=== PATIENT | male | born 1980 | race Caucasian/White ===

== ENCOUNTER 2019-08-29 15:16 | Inpatient (IN) | payer MEDICAID, OTHER ==
[2019-08-29 16:11] LABS: Amphetamine Screen,Urine Not Detected (NotDetected); Barbiturate Screen,Urine Not Detected (NotDetected); Benzodiazepines Screen,Urine Detected (NotDetected); Cocaine Screen,Urine Not Detected (NotDetected); Methadone Screen, Urine Not Detected (NotDetected); Opiate Screen,Urine Not Detected (NotDetected); Oxycodone Screen, Urine Not Detected (NotDetected); Phencyclidine Screen,Urine Not Detected (NotDetected); Tricyclic Antidepressant,Urine Not Detected (NotDetected); Urn Cannabinoid Scrn Not Detected (NotDetected)
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
[2019-08-29] MEDS ORDERED: ACETAMINOPHEN TAB 325 MG TAB PO PRN (17:42)
[2019-08-29] MEDS ORDERED: MAG HYDROX/AL HYDROX/SIMETH 30 ML CUP PO PRN (17:42)
[2019-08-29] MEDS ORDERED: MAGNESIUM HYDROXIDE 2,400 MG/10 ML CUP PO PRN (17:42)
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
[2019-08-30 07:06] LABS: Basophils # (A) 0.1 k/uL (0-0.2); Basophils % (A) 1 %; Eosinophils # (A) 0.4 k/uL (0-0.7); Eosinophils % (A) 6 %; HCT 46.1 % (39.0-53.0); HGB 15.4 gm/dL (13.0-17.5); Lymphocytes # (A) 2.1 k/uL (1.0-4.8); Lymphocytes % (A) 27 %; MCH 31.6 pg (25.0-35.0); MCHC 33.3 g/dL (31.0-37.0); MCV 94.8 fL (80.0-100.0); Mean Platelet Volume 7.3; Monocytes # (A) 0.4 k/uL (0-1.0); Monocytes % (A) 6 %; Neutrophils # (A) 4.7 k/uL (1.3-7.7); Neutrophils % (A) 60 %; Platelet Count 246 k/uL (150-450); RBC 4.87 m/uL (4.30-5.90); RDW 12.1 % (11.5-15.5); WBC 7.8 k/uL (3.8-10.6)
[2019-08-30 07:14] LABS: ALT 22 U/L (4-49); AST 29 U/L (17-59); African American GFR (CKD) >90 (>60 ml/min/1.73 sqM); Albumin 4.5 g/dL (3.5-5.0); Alkaline Phosphatase 52 U/L (38-126); Anion Gap 8 mmol/L; Blood Urea Nitrogen 18 mg/dL (9-20); Calcium 9.9 mg/dL (8.4-10.2); Carbon Dioxide 25 mmol/L (22-30); Chloride 107 mmol/L (98-107); Cholesterol 197 mg/dL (<200); Glucose 91 mg/dL (74-99); HDL Cholesterol 35 mg/dL (40-60); LDL Cholesterol,Calculated 140 mg/dL (0-99); Non-African American GFR(CKD) >90 (>60 ml/min/1.73 sqM); Potassium 4.6 mmol/L (3.5-5.1); Sodium 140 mmol/L (137-145); Total Bilirubin 1.1 mg/dL (0.2-1.3); Total Protein 7.6 g/dL (6.3-8.2); Triglycerides 109 mg/dL (<150)
[2019-08-30] MEDS: amLODIPine 10 MG TAB PO SCH (08:32)
[2019-08-30] MEDS: FINASTERIDE 5 MG TAB PO SCH (08:32)
[2019-08-30] MEDS: LORazepam 1 MG TAB PO PRN ×3 (08:36→22:50)
[2019-08-30] MEDS ORDERED: LITHIUM CARBONATE 300 MG CAP PO SCH (09:00)
[2019-08-30] MEDS: VALSARTAN 40 MG TAB PO SCH (09:21)
[2019-08-30 09:48] LABS: Lithium <0.2 mmol/L
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
[2019-08-30] MEDS: NICOTINE POLACRILEX 2 MG GUM BUCCAL PRN ×2 (12:03→18:09)
[2019-08-30 14:45] LABS: Hemoglobin A1C 4.9 % (4.0-6.0)
[2019-08-30] MEDS: traZODone HCL 50 MG TAB PO SCH (20:25)
[2019-08-30] MEDS: PALIPERIDONE 3 MG TAB.ER.24 PO SCH (20:25)
[2019-08-30] MEDS ORDERED: LORazepam 0.5 MG TAB PO SCH (21:00)
[2019-08-31] MEDS: amLODIPine 10 MG TAB PO SCH (08:17)
[2019-08-31] MEDS: VALSARTAN 40 MG TAB PO SCH (08:18)
[2019-08-31] MEDS: FINASTERIDE 5 MG TAB PO SCH (08:18)
[2019-08-31] MEDS: LORazepam 1 MG TAB PO PRN (08:19)
[2019-08-31] MEDS: NICOTINE POLACRILEX 2 MG GUM BUCCAL PRN ×2 (08:19→14:39)
--- NOTE | 2019-08-31 09:54 | P.PN ---
Progress Note - Text Progress Note Date: 08/31/19 Interval History: Patient was seen wandering the hallways and was directable and agreeable to sp gregory with continuity writer in the office. Patient appeared to have improved hygiene and grooming today. She appeared to have a improved affect and states that his anxiety and mood have been gradually improving. He states that he feels less irritable today on the current medication. Or Assistant and patient discussed more about the side effects of the medications as patient had more questions and we talked about the possibility of gynecomastia, sedation, weight gain and also orthostatic hypotension and at this point patient verbally agreed and understood and wanted to continue on this medication. He states that then noises and sounds are becoming less "loud" for him and he states that he usually takes him about 3-4 days for that to improve. Patient appeared to be more future oriented and we spoke more about the long-acting injection. He states that he slept well throughout the night and has a fair appetite. At this time patient denies any suicidal or homical ideations, intent or plan. Patient denies any visual hallucinations and denies any paranoia or delusions. Patient has been compliant with meds. Mental Status Exam: General Appearance: Patient appears to be stated age is alert, directable, and attempts to cooperate. Patient appears to have fair hygiene and grooming. Behavior: Patient is seated without any agitated behavior. Attempts to cooperate. Speech: Patient's speech is fluent and nonpressured. Mood/Affect: Patient reports their mood is "better", affect is congruent Suicidality/Homicidality: Patient denies having any homicidal ideation intent or plan. Denies any suicidal ideations intent or plan Perceptions: Patient denies any visual hallucinations and admits to auditory hallucinations of noises and voices at times which are mildly improving. Though content/process: There is no evidence of any delusional thought content and thought process is linear and goal-directed. Memory and concentration: AOX3, grossly intact for the purposes of this session Judgment and insight: poor, improving mildly. Assessment Schizoaffective disorder, depressive type History of traumatic brain injury Plan: -Patient continues to meet criteria for inpatient psychiatric admission for symptom stabilization and safety. Patient has signed adult voluntary form and medication consent and was placed in patient's chart. -Medications: Continue with Invega 3 mg nightly for psychosis/mood s tabilization. Continue with trazodone 25 mg nightly for insomnia/mood. We will restart patient's home dose of Ativan 0.5 mg 3 times a day for anxiety. -When necessary Ativan and Geodon for agitation/aggression. -NRT - Nicorette gum -SW on board for discharge planning. Encouraged the patient to participate in milieu. Will need to transition patient onto Invega Sustenna long-acting injection prior to discharge the patient will be going back to his mother's house upon discharge.
[2019-08-31] MEDS: LORazepam 0.5 MG TAB PO SCH ×2 (15:14→20:55)
[2019-08-31] MEDS: PALIPERIDONE 3 MG TAB.ER.24 PO SCH (20:54)
[2019-08-31] MEDS: traZODone HCL 50 MG TAB PO SCH (20:54)
[2019-09-01] MEDS: amLODIPine 10 MG TAB PO SCH (08:26)
[2019-09-01] MEDS: LORazepam 0.5 MG TAB PO SCH ×3 (08:26→21:12)
[2019-09-01] MEDS: VALSARTAN 40 MG TAB PO SCH (08:27)
[2019-09-01] MEDS: FINASTERIDE 5 MG TAB PO SCH (08:28)
[2019-09-01] MEDS: NICOTINE POLACRILEX 2 MG GUM BUCCAL PRN ×3 (08:29→20:41)
--- NOTE | 2019-09-01 09:57 | P.PN ---
Progress Note - Text Progress Note Date: 09/01/19 Interval History: Patient was seen taking part in group this morning and was directable and agre eable to speak with group underwriter in the office. Patient appeared to have improved hygiene and grooming today however did claim that he feels more anxious today. He claims that he was thinking a lot about his father and had fleeting thoughts of self-harm/suicide yesterday however was able to "break out of it". He asked group underwriter if he could be started on an antidepressant today to help with his mood. Preschool Teacher'S Assistant spoke about the different antidepressant options and the side effects. He states that he feels less irritable today on the current medication and claims that the voices and noises that he was hearing have been gradually improving. He spoke about his thoughts on wanting to get a job after he is discharged and states that "what am I going to do?". He states that he slept well throughout the night and has a fair appetite. At this time patient denies any suicidal or homical ideations, intent or plan. Patient denies any visual hallucinations and denies any paranoia or delusions. Patient has been compliant with meds. Mental Status Exam: General Appearance: Patient appears to be stated age is alert, directable, and attempts to cooperate. Patient appears to have fair hygiene and grooming. Behavior: Patient is seated without any agitated behavior. Attempts to cooperate. Appears to be anxious. Speech: Patient's speech is fluent and nonpressured. Mood/Affect: Patient reports their mood is "down", affect is congruent and appears anxious. Suicidality/Homicidality: Patient denies having any homicidal ideation intent or plan. Denies any suicidal ideations intent or plan Perceptions: Patient denies any visual hallucinations and admits to auditory hallucinations of noises and voices at times which are mildly improving. Though content/process: There is no evidence of any delusional thought content and thought process is linear and goal-directed. Memory and concentration: AOX3, grossly intact for the purposes of this session Judgment and insight: poor, improving mildly. Assessment Schizoaffective disorder, depressive type History of traumatic brain injury Plan: -Patient continues to meet criteria for inpatient psychiatric admission for symptom stabilization and safety. Patient has signed adult voluntary form and medication consent and was placed in patient's chart. -Medications: Increased Invega 6 mg nightly for psychosis/mood stabilization. Continue with trazodone 25 mg nightly for insomnia/mood. Continue with Ativan 0.5 mg 3 times a day for anxiety. Will start patient on Zoloft 50 mg daily for mood/anxiety. -When necessary Ativan and Geodon for agitation/aggression. -NRT - Nicorette gum -SW on board for discharge planning. Encouraged the patient to participate in milieu. Will need to transition patient onto Invega Sustenna long-acting injection prior to discharge the patient will be going back to his mother's house upon discharge. Likely discharge early next week.
[2019-09-01] MEDS: SERTRALINE 50 MG TAB PO SCH (10:18)
[2019-09-01] MEDS: traZODone HCL 50 MG TAB PO SCH (20:37)
[2019-09-01] MEDS: PALIPERIDONE 6 MG TAB.ER.24 PO SCH (20:37)
[2019-09-02] MEDS: amLODIPine 10 MG TAB PO SCH (08:30)
[2019-09-02] MEDS: SERTRALINE 50 MG TAB PO SCH (08:30)
[2019-09-02] MEDS: FINASTERIDE 5 MG TAB PO SCH (08:30)
[2019-09-02] MEDS: LORazepam 0.5 MG TAB PO SCH ×3 (08:30→21:16)
[2019-09-02] MEDS: VALSARTAN 40 MG TAB PO SCH (08:31)
[2019-09-02] MEDS: NICOTINE POLACRILEX 2 MG GUM BUCCAL PRN ×2 (08:31→14:39)
--- NOTE | 2019-09-02 11:22 | P.PN ---
Progress Note - Text Progress Note Date: 09/02/19 Interval History: Patient was seen taking part in activities group this morning and was directable and agreeable to speak with newspaper writer in the office. Patient continues to be more appropriate and cooperative during interview. He continues to be talkative however was rational and logical lung with being goal oriented during conversation. He states that his mood has been gradually improving however states that he had some "depressive thoughts" yesterday and states that they are not voices talking to him but thoughts telling him that he is "worthless" and that thoughts about his father. Patient continues to remain optimistic about his medications and states that his mood is more stable and he feels more "better overall". Patient claims that he would like to remain on the same dose of medication at this time. He states that he feels less irritable today. He states that he slept well throughout the night and has a fair appetite. At this time patient denies any suicidal or homical ideations, intent or plan. Patient denies any visual hallucinations and denies any paranoia or delusions. Patient has been compliant with meds. Mental Status Exam: General Appearance: Patient appears to be stated age is alert, directable, and attempts to cooperate. Patient appears to have fair hygiene and grooming. Behavior: Patient is seated without any agitated behavior. Attempts to cooperate. Appears to be less anxious today. Speech: Patient's speech is fluent and nonpressured. Mood/Affect: Patient reports their mood is "better", affect is congruent and appears less anxious. Suicidality/Homicidality: Patient denies having any homicidal ideation intent or plan. Denies any suicidal ideations intent or plan Perceptions: Patient denies any visual hallucinations and admits to auditory hallucinations of noises and voices at times which are mildly improving. Though content/process: There is no evidence of any delusional thought content and thought process is linear and goal-directed. Memory and concentration: AOX3, grossly intact for the purposes of this session Judgment and insight: improving mildly. Assessment Schizoaffective disorder, depressive type History of traumatic brain injury Plan: -Patient continues to meet criteria for inpatient psychiatric admission for symptom stabilization and safety. Patient has signed adult voluntary form and medication consent and was placed in patient's chart. -Medications: Continue with Invega 6 mg nightly for psychosis/mood s tabilization. Continue with trazodone 25 mg nightly for insomnia/mood. Continue with Ativan 0.5 mg 3 times a day for anxiety. Will continue with Zoloft 50 mg daily for mood/anxiety. -When necessary Ativan and Geodon for agitation/aggression. -NRT - Nicorette gum -SW on board for discharge planning. Encouraged the patient to participate in milieu. Will need to transition patient onto Invega Sustenna long-acting injection prior to discharge the patient will be going back to his mother's house upon discharge. Will likely give Invega Sustenna loading dose Thursday with a plan to discharge early next week.
[2019-09-02] MEDS: PALIPERIDONE 6 MG TAB.ER.24 PO SCH (21:15)
[2019-09-02] MEDS: traZODone HCL 50 MG TAB PO SCH (21:15)
[2019-09-03] MEDS: FINASTERIDE 5 MG TAB PO SCH (08:29)
[2019-09-03] MEDS: SERTRALINE 50 MG TAB PO SCH (08:29)
[2019-09-03] MEDS: VALSARTAN 40 MG TAB PO SCH (08:29)
[2019-09-03] MEDS: NICOTINE POLACRILEX 2 MG GUM BUCCAL PRN ×3 (08:29→20:46)
[2019-09-03] MEDS: amLODIPine 10 MG TAB PO SCH (08:29)
[2019-09-03] MEDS: LORazepam 0.5 MG TAB PO SCH ×3 (08:29→21:06)
--- NOTE | 2019-09-03 09:27 | P.PN ---
Progress Note - Text Progress Note Date: 09/03/19 Interval History: Patient was seen walking the hallways and was directable and agreeable to speak with typewriter aligner in the office. Patient continues to be more appropriate and cooperative during interview. He continues to states that his mood has been gradually improving and he is feeling more optimistic. He feels that the medications are helping him at this time however did endorse some mild depression yesterday and depressive thoughts. Patient was agreeable to have his Zoloft increased today and wanted to remain on the same dose of the other medications. He states that he slept well throughout however did have a nightmare which she talked a typewriter aligner about and has a fair appetite. At this time patient denies any suicidal or homical ideations, intent or plan. Patient denies any visual hallucinations and denies any paranoia or delusions. Patient has been compliant with meds. Mental Status Exam: General Appearance: Patient appears to be stated age is alert, directable, and attempts to cooperate. Patient appears to have fair hygiene and grooming. Behavior: Patient is seated without any agitated behavior. Attempts to cooperate. Speech: Patient's speech is fluent and nonpressured. Mood/Affect: Patient reports their mood is "good", affect is congruent and appears less anxious. Suicidality/Homicidality: Patient denies having any homicidal ideation intent or plan. Denies any suicidal ideations intent or plan Perceptions: Patient denies any visual hallucinations and admits to auditory hallucinations of noises and voices at times which are mildly improving. Though content/process: There is no evidence of any delusional thought content and thought process is linear and goal-directed. Memory and concentration: AOX3, grossly intact for the purposes of this session Judgment and insight: improving mildly. Assessment Schizoaffective disorder, depressive type History of traumatic brain injury Plan: -Patient continues to meet criteria for inpatient psychiatric admission for symptom stabilization and safety. Patient has signed adult voluntary form and medication consent and was placed in patient's chart. -Medications: Continue with Invega 6 mg nightly for psychosis/mood stabilization. Continue with trazodone 25 mg nightly for insomnia/mood. Continue with Ativan 0.5 mg 3 times a day for anxiety. Increased Zoloft 100 mg daily for mood/anxiety. -When necessary Ativan and Geodon for agitation/aggression. -NRT - Nicorette gum -SW on board for discharge planning. Encouraged the patient to participate in milieu. Will need to transition patient onto Invega Sustenna long-acting injection prior to discharge the patient will be going back to his mother's house upon discharge. Will likely give Invega Sustenna loading dose tomorrow with a plan to discharge early next week.
[2019-09-03] MEDS: PALIPERIDONE 6 MG TAB.ER.24 PO SCH (21:05)
[2019-09-03] MEDS: traZODone HCL 50 MG TAB PO SCH (21:06)
[2019-09-04] MEDS: NICOTINE POLACRILEX 2 MG GUM BUCCAL PRN ×3 (04:57→16:28)
[2019-09-04] MEDS: FINASTERIDE 5 MG TAB PO SCH (08:56)
[2019-09-04] MEDS: LORazepam 0.5 MG TAB PO SCH ×3 (08:56→21:11)
[2019-09-04] MEDS: SERTRALINE 100 MG TAB PO SCH (08:56)
[2019-09-04] MEDS: amLODIPine 10 MG TAB PO SCH (08:56)
[2019-09-04] MEDS: VALSARTAN 40 MG TAB PO SCH (08:57)
[2019-09-04] MEDS: ZINC SULFATE 220 MG CAP PO SCH (08:57)
--- NOTE | 2019-09-04 09:15 | P.PN ---
Progress Note - Text Progress Note Date: 09/04/19 Interval History: Patient was seen walking the hallways before taking his medications and was di rectable and agreeable to speak with senior grant writer in the office. He continues to states that his mood has been gradually improving. He states that he feels less irritable and is also spoke to his brother who has been encouraging for him. He feels that the medications are helping him. He believes that his depressive thoughts are improving with the Zoloft. He states that he slept well throughout the night. He has been going to groups.. At this time patient denies any suicidal or homical ideations, intent or plan. Patient denies any visual hallucinations and denies any paranoia or delusions. Patient has been compliant with meds. Patient was agreeable to take the long-acting injection today. Mental Status Exam: General Appearance: Patient appears to be stated age is alert, directable, and attempts to cooperate. Patient appears to have fair hygiene and grooming. Behavior: Patient is seated without any agitated behavior. Attempts to cooperate. Speech: Patient's speech is fluent and nonpressured. Mood/Affect: Patient reports their mood is "better", affect is congruent Suicidality/Homicidality: Patient denies having any homicidal ideation intent or plan. Denies any suicidal ideations intent or plan Perceptions: Patient denies any visual hallucinations and auditory hallucinations have subsided. Though content/process: There is no evidence of any delusional thought content and thought process is linear and goal-directed. Memory and concentration: AOX3, grossly intact for the purposes of this session Judgment and insight: improving mildly. Assessment Schizoaffective disorder, depressive type History of traumatic brain injury Plan: -Patient continues to meet criteria for inpatient psychiatric admission for symptom stabilization and safety. Patient has signed adult voluntary form and medication consent and was placed in patient's chart. -Medications: Patient to receive Invega Sustenna loading dose 234 mg IM today. Decreased Invega 3 mg nightly for psychosis/mood stabilization, with plan to wean off. Continue with trazodone 25 mg nightly for insomnia/mood. Continue with Ativan 0.5 mg 3 times a day for anxiety. Continue with Zoloft 100 mg daily for mood/anxiety. -When necessary Ativan and Geodon for agitation/aggression. -NRT - Nicorette gum -SW on board for discharge planning. Encouraged the patient to participate in milieu. Will need to transition patient onto Invega Sustenna long-acting injection prior to discharge the patient will be going back to his mother's house upon discharge. Plan to discharge early this week.
[2019-09-04] MEDS: LORazepam 1 MG TAB PO PRN ×2 (12:15→18:34)
[2019-09-04] MEDS ORDERED: PALIPERIDONE IM 234 MG/1.5 ML SYG IM ONE (13:00)
[2019-09-04] MEDS: traZODone HCL 50 MG TAB PO SCH (20:44)
[2019-09-04] MEDS: PALIPERIDONE 3 MG TAB.ER.24 PO SCH (20:44)
[2019-09-05] MEDS: NICOTINE POLACRILEX 2 MG GUM BUCCAL PRN ×3 (06:52→18:28)
[2019-09-05] MEDS: LORazepam 0.5 MG TAB PO SCH ×3 (07:18→21:08)
[2019-09-05] MEDS: amLODIPine 10 MG TAB PO SCH (08:16)
[2019-09-05] MEDS: ZINC SULFATE 220 MG CAP PO SCH (08:16)
[2019-09-05] MEDS: VALSARTAN 40 MG TAB PO SCH (08:16)
[2019-09-05] MEDS: FINASTERIDE 5 MG TAB PO SCH (08:16)
[2019-09-05] MEDS: SERTRALINE 100 MG TAB PO SCH (08:16)
[2019-09-05] MEDS: LORazepam 1 MG TAB PO PRN ×2 (09:09→18:40)
[2019-09-05] MEDS: busPIRone HCl 10 MG TAB PO SCH ×2 (10:31→21:06)
--- NOTE | 2019-09-05 11:32 | P.PN ---
Progress Note - Text Progress Note Date: 09/05/19 Interval History: Patient was seen walking the hallways this morning and was directable and agre eable to speak with typewriter ribbon winder in the office. He continues to states that his mood has been gradually improving however does state that his anxiety was "bad this morning" and states that he was having an anxiety attack. He claims that the Ativan did help and he has been trying to distract himself on the unit. He states that he feels less irritable today. He feels that the medications are helping him and typewriter ribbon winder discussed with patient the option of starting BuSpar twice a day for his anxiety and patient was agreeable to this. He believes that his depressive thoughts are improving with the Zoloft however did state that he felt depressed last night "for a moment". Overall he states that he is doing "a lot better since I came in". He states that he slept well throughout the night. He has been going to groups regularly. At this time patient denies any suicidal or homical ideations, intent or plan. Patient denies any visual hallucinations and denies any paranoia or delusions. Patient has been compliant with meds. Patient received his long-acting injection yesterday and tolerated it well. Mental Status Exam: General Appearance: Patient appears to be stated age is alert, directable, and a ttempts to cooperate. Patient appears to have fair hygiene and grooming. Behavior: Patient is seated without any agitated behavior. Attempts to cooperate. Appears anxious. Speech: Patient's speech is fluent and nonpressured. Mood/Affect: Patient reports their mood is "ok", affect is congruent and appears anxious. Suicidality/Homicidality: Patient denies having any homicidal ideation intent or plan. Denies any suicidal ideations intent or plan Perceptions: Patient denies any visual hallucinations and auditory hallucinations have subsided. Though content/process: There is no evidence of any delusional thought content and thought process is linear and goal-directed. Future oriented. Memory and concentration: AOX3, grossly intact for the purposes of this session Judgment and insight: improving mildly. Assessment Schizoaffective disorder, depressive type History of traumatic brain injury Plan: -Patient continues to meet criteria for inpatient psychiatric admission for symptom stabilization and safety. Patient has signed adult voluntary form and medication consent and was placed in patient's chart. -Medications: Patient received Invega Sustenna loading dose 234 mg IM on 09/04/2019 and will be due for his next dose of 156 mg on 09/12/2019. Continue with Invega 3 mg nightly for psychosis/mood stabilization, with plan to wean off. Continue with trazodone 25 mg nightly for insomnia/mood. Continue with Ativan 0.5 mg 3 times a day for anxiety. Continue with Zoloft 100 mg daily for mood/anxiety. Added on BuSpar 10 mg twice a day for anxiety. -When necessary Ativan and Geodon for agitation/aggression. -NRT - Nicorette gum -SW on board for discharge planning. Encouraged the patient to participate in milieu. Patient will be going back to his mother's house upon discharge. Plan to discharge tomorrow.
[2019-09-05] MEDS: PALIPERIDONE 3 MG TAB.ER.24 PO SCH (21:05)
[2019-09-05] MEDS: traZODone HCL 50 MG TAB PO SCH (21:06)
[2019-09-06] MEDS: LORazepam 0.5 MG TAB PO SCH ×3 (06:54→21:21)
[2019-09-06] MEDS: ZINC SULFATE 220 MG CAP PO SCH (08:19)
[2019-09-06] MEDS: SERTRALINE 100 MG TAB PO SCH (08:19)
[2019-09-06] MEDS: VALSARTAN 40 MG TAB PO SCH (08:19)
[2019-09-06] MEDS: LORazepam 1 MG TAB PO PRN ×2 (08:19→20:11)
[2019-09-06] MEDS: busPIRone HCl 10 MG TAB PO SCH ×3 (08:19→21:21)
[2019-09-06] MEDS: FINASTERIDE 5 MG TAB PO SCH (08:19)
[2019-09-06] MEDS: amLODIPine 10 MG TAB PO SCH (08:20)
[2019-09-06] MEDS ORDERED: SERTRALINE 50 MG TAB PO STA (08:48)
[2019-09-06] MEDS ORDERED: busPIRone HCl 10 MG TAB PO SCH (09:00)
--- NOTE | 2019-09-06 09:01 | P.PN ---
Progress Note - Text Progress Note Date: 09/06/19 Interval History: Patient was seen speaking with another patient this morning in the dining bowie and was directable and agreeable to speak with development writer in the office. Patient claims that he did not have a good night last night and states that he did have some anxiety this morning and also some depressed thoughts of wanting to hurt himself. Patient also made another comment about "this doesn't stop I wanted to put my head through a wall" however denies any suicidal ideations or intent. He does claim that the medications are helping him and remains optimistic and positive about them. Patient was agreeable to have his Zoloft, BuSpar and paliperidone increased. Overall he states that he is doing better however feels uncomfortable about being discharged today and claims "I don't know what can happen if I leave today". He states that he slept well throughout the night approximately 5-6 hours. He has been going to groups regularly. At this time patient denies any suicidal or homical ideations, intent or plan. Patient denies any visual hallucinations and denies any paranoia or delusions. Patient has been compliant with meds. Mental Status Exam: General Appearance: Patient appears to be stated age is alert, directable, and attempts to cooperate. Patient appears to have fair hygiene and grooming. Behavior: Patient is seated without any agitated behavior. Attempts to cooperate. Appears anxious. Speech: Patient's speech is fluent and nonpressured. Mood/Affect: Patient reports their mood is "not good", affect is congruent and appears anxious. Suicidality/Homicidality: Patient denies having any homicidal ideation intent or plan. Denies any suicidal ideations intent or plan Perceptions: Patient denies any visual hallucinations and auditory hallucinations have subsided. Though content/process: There is no evidence of any delusional thought content and thought process is linear and goal-directed. Preoccupied with his symptoms and negative thoughts. Memory and concentration: AOX3, grossly intact for the purposes of this session Judgment and insight: improving mildly. Assessment Schizoaffective disorder, depressive type History of traumatic brain injury Plan: -Patient continues to meet criteria for inpatient psychiatric admission for symptom stabilization and safety. Patient has signed adult voluntary form and medication consent and was placed in patient's chart. -Medications: Patient received Invega Sustenna loading dose 234 mg IM on 09/04/2019 and will be due for his next dose of 156 mg on 09/12/2019. Increased Invega 6 mg nightly for psychosis/mood stabilization, with plan to wean off gradually. Continue with trazodone 25 mg nightly for insomnia/mood. Continue with Ativan 0.5 mg 3 times a day for anxiety. Increased Zoloft 150 mg daily for mood/anxiety. Increased BuSpar 10 mg 3 times a day for anxiety. -When necessary Ativan and Geodon for agitation/aggression. -NRT - Nicorette gum -SW on board for discharge planning. Encouraged the patient to participate in milieu. Patient will be going back to his mother's house upon discharge. Patient will not be discharged today as previously planned and will reevaluate for possible tomorrow to be discharged back home.
[2019-09-06 13:11] VITALS: BMI 26.4
[2019-09-06] MEDS: NICOTINE POLACRILEX 2 MG GUM BUCCAL PRN ×2 (13:31→20:10)
[2019-09-06] MEDS: traZODone HCL 50 MG TAB PO SCH (20:10)
[2019-09-06] MEDS: PALIPERIDONE 6 MG TAB.ER.24 PO SCH (20:10)
[2019-09-07] MEDS: amLODIPine 10 MG TAB PO SCH (08:37)
[2019-09-07] MEDS: busPIRone HCl 10 MG TAB PO SCH ×3 (08:37→21:13)
[2019-09-07] MEDS: LORazepam 0.5 MG TAB PO SCH ×3 (08:37→21:13)
[2019-09-07] MEDS: FINASTERIDE 5 MG TAB PO SCH (08:37)
[2019-09-07] MEDS: SERTRALINE 100 MG TAB PO SCH (08:38)
[2019-09-07] MEDS: ZINC SULFATE 220 MG CAP PO SCH (08:39)
[2019-09-07] MEDS: VALSARTAN 40 MG TAB PO SCH (09:06)
[2019-09-07] MEDS: NICOTINE POLACRILEX 2 MG GUM BUCCAL PRN ×2 (09:06→16:33)
--- NOTE | 2019-09-07 09:53 | P.PN ---
Progress Note - Text Progress Note Date: 09/07/19 Interval History: Patient was seen sitting in on group [place] [facility] [place] was direct able and agreeable to speak with radio script writer in the office. Patient appears to be having a brighter affect this morning and states that he is feeling better in terms of his mood and anxiety. He states that the increase in the BuSpar and Zoloft have been helping him. He claims that he wants to remain on the same dose of medications at this time and give it another day. He did state that last night he had some "fleeting thoughts" of wanting to harm himself however states that those thoughts past and he was able to "cope with them". He states that he slept well throughout the night approximately 5-6 hours and has a fair appetite. He has been going to groups regularly. At this time patient denies any suicidal or homical ideations, intent or plan. Patient denies any visual hallucinations and denies any paranoia or delusions. Patient has been compliant with meds. Mental Status Exam: General Appearance: Patient appears to be stated age is alert, directable, and attempts to cooperate. Patient appears to have fair hygiene and grooming. Behavior: Patient is seated without any agitated behavior. Attempts to cooperate. Appears less anxious. Speech: Patient's speech is fluent and nonpressured. Mood/Affect: Patient reports their mood is "alright", affect is congruent and appears less anxious. Suicidality/Homicidality: Patient denies having any homicidal ideation intent or plan. Denies any suicidal ideations intent or plan Perceptions: Patient denies any visual hallucinations and auditory hallucinations have subsided. Though content/process: There is no evidence of any delusional thought content and thought process is linear and goal-directed. Preoccupied with his symptoms and negative thoughts. Memory and concentration: AOX3, grossly intact for the purposes of this session Judgment and insight: improving mildly. Assessment Schizoaffective disorder, depressive type History of traumatic brain injury Plan: -Patient continues to meet criteria for inpatient psychiatric admission for symptom stabilization and safety. Patient has signed adult voluntary form and medication consent and was placed in patient's chart. -Medications: Patient received Invega Sustenna loading dose 234 mg IM on 09/04/2019 and will be due for his next dose of 156 mg on 09/12/2019. Continue with Invega 6 mg nightly for psychosis/mood stabilization, with plan to wean off gradually. Continue with trazodone 25 mg nightly for insomnia/mood. Continue with Ativan 0.5 mg 3 times a day for anxiety. Continue with Zoloft 150 mg daily for mood/anxiety. Continue with BuSpar 10 mg 3 times a day for anxiety. -When necessary Ativan and Geodon for agitation/aggression. -NRT - Nicorette gum -SW on board for discharge planning. Encouraged the patient to participate in milieu. Patient will be going back to his mother's house upon discharge. Will likely discharge patient before the end of the week and will need to get his second dose of Invega Sustenna prior to discharge.
[2019-09-07] MEDS: LORazepam 1 MG TAB PO PRN (10:59)
[2019-09-07] MEDS: traZODone HCL 50 MG TAB PO SCH (21:12)
[2019-09-07] MEDS: PALIPERIDONE 6 MG TAB.ER.24 PO SCH (21:12)
[2019-09-08] MEDS: amLODIPine 10 MG TAB PO SCH (08:20)
[2019-09-08] MEDS: busPIRone HCl 10 MG TAB PO SCH ×3 (08:20→21:27)
[2019-09-08] MEDS: LORazepam 0.5 MG TAB PO SCH ×3 (08:21→21:27)
[2019-09-08] MEDS: FINASTERIDE 5 MG TAB PO SCH (08:21)
[2019-09-08] MEDS: ZINC SULFATE 220 MG CAP PO SCH (08:21)
[2019-09-08] MEDS: VALSARTAN 40 MG TAB PO SCH (08:21)
[2019-09-08] MEDS: SERTRALINE 100 MG TAB PO SCH (08:21)
[2019-09-08] MEDS: NICOTINE POLACRILEX 2 MG GUM BUCCAL PRN ×3 (08:23→21:27)
--- NOTE | 2019-09-08 09:41 | P.PN ---
Progress Note - Text Progress Note Date: 09/08/19 Interval History: Patient was seen walking the hallways this morning speaking with other patients and was directable and agreeable to speak with marine underwriter in the office. Patient appears to have a brighter affect this morning and states that he is doing well. He claims that he had some negative thoughts last night however has been trying to use different coping skills to control them. It's that the BuSpar and Zoloft have been helping him with his anxiety and wants to leave them at the same dose at this time. He claims that talking to other people on the unit has been helping him with some negative thoughts. He claims that he slept for most of the night and had one awakening. She is continuing to be agreeable to have his second dose of Invega Sustenna tomorrow prior to discharge. He has been going to as many groups as he can. At this time patient denies any suicidal or homical ideations, intent or plan. Patient denies any visual hallucinations and denies any paranoia or delusions. Patient has been compliant with meds. Mental Status Exam: General Appearance: Patient appears to be stated age is alert, directable, and attempts to cooperate. Patient appears to have fair hygiene and grooming. Behavior: Patient is seated without any agitated behavior. Attempts to cooperate. Appears less anxious. Speech: Patient's speech is fluent and nonpressured. Mood/Affect: Patient reports their mood is "alright", affect is congruent and appears less anxious. Suicidality/Homicidality: Patient denies having any homicidal ideation intent or plan. Denies any suicidal ideations intent or plan Perceptions: Patient denies any visual hallucinations and auditory hallucinations have subsided. Though content/process: There is no evidence of any delusional thought content and thought process is linear and goal-directed. Endorses some "negative thoughts". More future oriented. Memory and concentration: AOX3, grossly intact for the purposes of this session Judgment and insight: improving mildly. Assessment Schizoaffective disorder, depressive type History of traumatic brain injury Plan: -Patient continues to meet criteria for inpatient psychiatric admission for symptom stabilization and safety. Patient has signed adult voluntary form and medication consent and was placed in patient's chart. -Medications: Patient received Invega Sustenna loading dose 234 mg IM on 09/04/2019 and will be due for his next dose of 156 mg on 09/09/2019. We'll now attempt to titrate down Invega 3 mg nightly for psychosis/mood stabilization, with plan to wean off gradually. Continue with trazodone 25 mg nightly for insomnia/mood. Continue with Ativan 0.5 mg 3 times a day for anxiety. Continue with Zoloft 150 mg daily for mood/anxiety. Continue with BuSpar 10 mg 3 times a day for anxiety. -When necessary Ativan and Geodon for agitation/aggression. -NRT - Nicorette gum -SW on board for discharge planning. Encouraged the patient to participate in milieu. Patient will be going back to his mother's house upon discharge. Will likely discharge patient tomorrow after he received his second dose of long- acting injection.
[2019-09-08] MEDS: LORazepam 1 MG TAB PO PRN ×2 (10:22→18:21)
[2019-09-08] MEDS ORDERED: PALIPERIDONE 3 MG TAB.ER.24 PO SCH (21:00)
[2019-09-08] MEDS: traZODone HCL 50 MG TAB PO SCH (21:27)
[2019-09-09] MEDS: NICOTINE POLACRILEX 2 MG GUM BUCCAL PRN (06:47)
[2019-09-09 06:57] VITALS: BP 132/76; PULSE 69; RESP 17; TEMP 98.3
[2019-09-09] MEDS ORDERED: PALIPERIDONE IM 234 MG/1.5 ML SYG IM ONE (08:00)
[2019-09-09] MEDS: VALSARTAN 40 MG TAB PO SCH (08:13)
[2019-09-09] MEDS: FINASTERIDE 5 MG TAB PO SCH (08:13)
[2019-09-09] MEDS: ZINC SULFATE 220 MG CAP PO SCH (08:13)
[2019-09-09] MEDS: amLODIPine 10 MG TAB PO SCH (08:15)
[2019-09-09] MEDS: busPIRone HCl 10 MG TAB PO SCH (08:15)
[2019-09-09] MEDS: SERTRALINE 100 MG TAB PO SCH (08:15)
[2019-09-09] MEDS: LORazepam 0.5 MG TAB PO SCH (08:16)
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
[2019-09-09] MEDS ORDERED: PALIPERIDONE IM 156 MG/ML SYG IM ONE (10:00)
== END 2019-09-09 13:10 | disposition home or self-care (01) | DRG 885 ==
LOC: EC 15:16 → 3MHU 17:39
PROVIDERS: ADMIT Psychiatry & Neurology Psychiatry; ATTEND Psychiatry & Neurology Psychiatry
DX: F25.1 Schizoaffective disorder, depressive type (principal); G47.00 Insomnia, unspecified; F41.1 Generalized anxiety disorder; F31.9 Bipolar disorder, unspecified; Z79.899 Other long term (current) drug therapy; Z87.820 Personal history of traumatic brain injury; Z87.891 Personal history of nicotine dependence; Z91.14 Patient's other noncompliance with medication regimen; Z88.6 Allergy status to analgesic agent; Z88.0 Allergy status to penicillin; Z88.8 Allergy status to other drugs, medicaments and biological substances
CPT/HCPCS: 80053; 80061; 80178; 80306; 82075; 83036; 84443; 85025; 99284

== ENCOUNTER 2020-02-28 23:42 | Inpatient (IN) | payer MEDICAID, OTHER ==
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
[2020-02-29] MEDS ORDERED: MAGNESIUM HYDROXIDE 2,400 MG/10 ML CUP PO PRN (03:39)
[2020-02-29] MEDS ORDERED: ZIPRASIDONE 20 MG VIAL IM PRN (03:39)
[2020-02-29] MEDS ORDERED: ACETAMINOPHEN TAB 325 MG TAB PO PRN (03:39)
[2020-02-29] MEDS ORDERED: MAG HYDROX/AL HYDROX/SIMETH 30 ML CUP PO PRN (03:39)
[2020-02-29] MEDS ORDERED: LORazepam 2 MG/ML INJ IM PRN (03:46)
[2020-02-29] MEDS: buPROPion XL 150 MG TAB.ER.24H PO SCH (09:12)
[2020-02-29] MEDS: busPIRone HCl 10 MG TAB PO SCH ×2 (09:12→20:42)
--- NOTE | 2020-02-29 10:09 | P.HP ---
Psychiatric H&P - . H&P Date: 02/29/20 History & Physical: Allergies Allergy/AdvReac Type Severity Reaction Status Date / Time diphenhydramine Allergy Rash/Hives Verified 02/28/20 23:47 [From Benadryl] ibuprofen [From Motrin] Allergy Itching Verified 02/28/20 23:47 Penicillins Allergy Unknown Verified 02/28/20 23:47 Childhood Vital Signs Temp 98 F 02/29/20 04:24 Pulse 76 02/29/20 04:24 Resp 18 02/29/20 04:24 BP 157/98 02/29/20 04:24 Pulse Ox 98 02/29/20 04:24 Intake & Output 02/28/20 02/29/20 02/29/20 18:59 06:59 18:59 Weight 85.275 kg 02/29/20 09:31 IDENTIFYING DATA: Patient is a 39-year-old male with a history of bipolar disorder who currently lives with his mother is single and has no kids. HPI: Patient presented to the hospital yesterday in the ER and complained of having his medications changed and apparently not having good control of his psychiatric symptoms recently. According to ER report patient was complaining of depression and suicidal thoughts and auditory hallucinations. Patient was previous to discharge from the mental health unit in August 2019 and was following up at [facility] for his psychiatric treatment. The patient was admitted to the unit voluntarily and spoke of having an increase in his symptoms for the past 3 weeks. He spoke of things initially "going well after he left the unit in August" however states that over time and especially the past 3 weeks his symptoms have gotten much worse and has been having worse auditory hallucinations. He states that the voices are "unbearable and I just want him to end". He claims that this is disrupting his functioning in his life. He claims that he is very worried about his symptoms. He states that he is feeling depressed and anxious as been having poor sleep. He claims that "I may fraction of what I used to be". He claims that he has been following up with his appointments and taking his medications however has been off his paliperidone injection for the past month and was supposed to be switched onto Abilify however has not taken it yet. He claims of poor sleep and fair appetite. Patient was not responding to internal stimuli and was logical and non-bizarre during interview. Patient denies any homicidal ideations intent or plan. He does admit to having suicidal thoughts however no intent or plan. At this time patient denies visual hallucinations. Patient denies using any recreational substances at this time any cigarettes or alcohol as well. PAST PSYCHIATRIC HISTORY: Patient states that he has a history of schizoaffective disorder along with anxiety disorder. Patient has been following up at [facility] with nurse practitioner Lizabeth regularly. Patient also has a counselor and director of social services. He did claim that he attempted suicide by cutting himself in 2010. He states that he has had multiple psychiatric hospitalizations in the past and his last inpatient admission was in August 2019 at [facility] PMH: Traumatic brain injury in 1998 ALLERGIES: as per EMR CHEMICAL DEPENDENCY HISTORY: as per HPI FAMILY PSYCHIATRIC/SUBSTANCE USE HISTORY: denies SOCIAL HISTORY: Patient was born and raised in [place] and claims that he completed high school and graduated from [employer]. He denies any legal problems. 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 He claims to be single has no kids and lives with his mother. MENTAL STATUS EXAM: General Appearance: Patient appears to be stated age is alert, directable, and attempts to cooperate. Patient appears to have poor hygiene and grooming. Behavior: Patient is seated without any agitated behavior. Attempts to cooperate. Appears to be frustrated. Speech: Patient's speech is fluent and nonpressured. Mood/Affect: Patient reports their mood is "depressed", affect is congruent and anxious affect. Suicidality/Homicidality: Patient denies having any homicidal ideation intent or plan. Denies any suicidal ideations intent or plan Perceptions: Patient denies any visual hallucinations and admits to auditory hallucinations of noises and voices at times. Though content/process: There is no evidence of any delusional thought content and thought process is linear and goal-directed. Focused on his medications and symptoms. Memory and concentration: AOX3, grossly intact for the purposes of this session. Can spell "WORLD" backwards Judgment and insight: poor STRENGTHS/WEAKNESSES: strength is that patient is resilient. Weakness is that patient has chronic mental illness. INTELLECT: average IMPRESSIONS: Schizoaffective disorder, depressive type History of traumatic brain injury PLAN: -Patient is admitted under voluntary status to MHU for stabilization of psychiatric symptoms and safety. Patient signed adult voluntary form and medication consent and is placed in patient's chart. -Medications : Will start Abilify 5 mg daily for psychosis/mood stabilization. Trazodone 50 mg daily at bedtime for insomnia/mood. BuSpar 30 mg twice a day for anxiety. Continue with Wellbutrin 150 mg daily for mood. vistaril prn for anxiety -Ativan and Geodon PRN for agitation/aggression -Patient was informed of the risks, benefits and side effects of the medication and patient verbally consented to taking the medications. Patient signed med consent form and was placed in chart. -Internal Medicine consult to perform medical evaluation and physical. -NRT -Nicorette gum -SW on board for discharge planning. Encourage patient to participate in groups to work on coping skills. 02/29/20 10:00 02/29/20 10:08
[2020-02-29] MEDS: ARIPiprazole 5 MG TAB PO SCH (10:40)
[2020-02-29] MEDS: hydrOXYzine pamoate 25 MG CAP PO PRN (18:05)
[2020-02-29] MEDS: traZODone HCL 50 MG TAB PO SCH (20:42)
[2020-02-29] MEDS ORDERED: VALSARTAN 40 MG TAB PO SCH (21:00)
[2020-02-29] MEDS: amLODIPine 10 MG TAB PO SCH (21:45)
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
[2020-02-29] MEDS: FINASTERIDE 5 MG TAB PO SCH (23:27)
[2020-03-01] MEDS: busPIRone HCl 10 MG TAB PO SCH ×2 (08:52→20:37)
[2020-03-01] MEDS: LORazepam 1 MG TAB PO PRN ×2 (08:54→15:09)
[2020-03-01] MEDS: FINASTERIDE 5 MG TAB PO SCH (09:26)
[2020-03-01] MEDS: amLODIPine 10 MG TAB PO SCH (09:26)
[2020-03-01] MEDS: VALSARTAN 80 MG TAB PO SCH (09:26)
[2020-03-01] MEDS: NICOTINE POLACRILEX 2 MG GUM BUCCAL PRN ×5 (10:23→20:38)
[2020-03-01] MEDS: buPROPion XL 300 MG TAB.ER.24H PO SCH (10:23)
[2020-03-01] MEDS: ARIPiprazole 5 MG TAB PO SCH (10:24)
[2020-03-01] MEDS: buPROPion XL 150 MG TAB.ER.24H PO SCH (10:25)
--- NOTE | 2020-03-01 10:27 | P.PN ---
Progress Note - Text Progress Note Date: 03/01/20 Interim history: I reviewed the medical record, interviewed the patient and discussed her treatment and treatment plan during team meeting. 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 Grooming is marginal He made eye contact and appeared to attend to the interview. He was alert and oriented to person, place and time. He was not agitated or restless. His speech was spontaneous with normal rate and rhythm. His affect was appropriate to thought content He denied suicidal ideation, wishes or homicidal ideation. He ruminated about his losses but did not express clear idea reference or paranoid ideation or delusions. His thinking was logical He didn't express clang associations. He reports auditory and visual hallucinations did not appear to be responding to internal stimuli. Global impression is average Insight or understanding of his illness or need for treatment is fair IMPRESSIONS: Schizoaffective disorder, depressive type History of traumatic brain injury Plan: -Patient continues to meet criteria for inpatient psychiatric admission for symptom stabilization and safety. . Increase Wellbutrin 300 mg for depression ,increase Abilify for hallucinations. . Increase Wellbutrin 200 daily for mood. Continue Trazodone for insomnia and Buspar for anxiety, Continue Continue Geodon 20 mg IM twice a day when necessary for agitation or aggression. Evaluate clinical status response to treatment on a daily basis. Encourage participation in therapeutic groups and activities.
[2020-03-01 11:19] LABS: Basophils # (A) 0.2 k/uL (0-0.2); Basophils % (A) 1 %; Eosinophils # (A) 0.6 k/uL (0-0.7); Eosinophils % (A) 4 %; HCT 46.5 % (39.0-53.0); HGB 15.2 gm/dL (13.0-17.5); Lymphocytes # (A) 2.1 k/uL (1.0-4.8); Lymphocytes % (A) 14 %; MCH 31.4 pg (25.0-35.0); MCHC 32.8 g/dL (31.0-37.0); MCV 95.6 fL (80.0-100.0); Mean Platelet Volume 6.7; Monocytes # (A) 0.6 k/uL (0-1.0); Monocytes % (A) 4 %; Neutrophils # (A) 11.4 k/uL (1.3-7.7); Neutrophils % (A) 76 %; Platelet Count 358 k/uL (150-450); RBC 4.86 m/uL (4.30-5.90); RDW 12.2 % (11.5-15.5); WBC 14.9 k/uL (3.8-10.6)
[2020-03-01 11:24] LABS: ALT 31 U/L (4-49); AST 31 U/L (17-59); African American GFR (CKD) >90 (>60 ml/min/1.73 sqM); Albumin 4.3 g/dL (3.5-5.0); Alkaline Phosphatase 69 U/L (38-126); Anion Gap 6 mmol/L; Bilirubin, Delta 0.2 mg/dL (0.0-0.2); Bilirubin,Unconjugated 0.7 mg/dL (0.0-1.1); Blood Urea Nitrogen 14 mg/dL (9-20); Calcium 9.4 mg/dL (8.4-10.2); Carbon Dioxide 26 mmol/L (22-30); Chloride 105 mmol/L (98-107); Cholesterol 188 mg/dL (<200); Glucose 96 mg/dL (74-99); HDL Cholesterol 37 mg/dL (40-60); LDL Cholesterol,Calculated 93 mg/dL (0-99); Non-African American GFR(CKD) >90 (>60 ml/min/1.73 sqM); Potassium 4.4 mmol/L (3.5-5.1); Sodium 137 mmol/L (137-145); Total Bilirubin 0.9 mg/dL (0.2-1.3); Total Protein 7.3 g/dL (6.3-8.2); Triglycerides 290 mg/dL (<150)
[2020-03-01] MEDS: hydrOXYzine pamoate 25 MG CAP PO PRN ×2 (13:54→19:12)
[2020-03-01 15:47] LABS: Hemoglobin A1C 4.9 % (4.0-6.0)
[2020-03-01] MEDS: traZODone HCL 50 MG TAB PO SCH (20:37)
[2020-03-02] MEDS: VALSARTAN 80 MG TAB PO SCH (08:31)
[2020-03-02] MEDS: ARIPiprazole 10 MG TAB PO SCH (08:33)
[2020-03-02] MEDS: buPROPion XL 300 MG TAB.ER.24H PO SCH (08:33)
[2020-03-02] MEDS: amLODIPine 10 MG TAB PO SCH (08:33)
[2020-03-02] MEDS: busPIRone HCl 10 MG TAB PO SCH ×2 (08:33→20:55)
[2020-03-02] MEDS: NICOTINE POLACRILEX 2 MG GUM BUCCAL PRN ×6 (08:34→20:54)
--- NOTE | 2020-03-02 08:58 | P.PN ---
Progress Note - Text Progress Note Date: 03/02/20 Interim history: I reviewed the medical record, interviewed the patient and discussed her treatment and treatment plan during team meeting. Patient was in [place] and agreed to follow me to office ,he stated that he was anxious yesterday ,had PRN 1 mg Ativan after lunch and Vistaril 25 mg after d inner ,stated that auditory hallucination are "Less ,not lound as before ,I am trying to use to these voices without having anxiety ",denies any command voices ,still endorsing "Seeing faces "rates his depression 7/10 and anxiety 4/10,10 being the worst,he stated that " ,has been compliant with medications and denies any side-effect SLEPT:6 hours ,minimal participation in groups LABS: RN NOTE:03/01/20 12:32 - Nurse Note by Fanny Pacheco [facility] Num: [id number] : 1980 Patient Age: 39 1146 WBC 14.9, Neutrophils 11.4, Sound notified, no new orders provided TODAYT VITALS:TEMP:98.3,P:68,R:16,BP:100/58 MENTAL STATUS EXAM: He presented as a casually dressed male who was pleasant on approach. Grooming is marginal He made eye contact and appeared to attend to the interview. He was alert and oriented to person, place and time. He was not agitated or restless. His speech was spontaneous with normal rate and rhythm. His affect was appropriate to thought content He denied suicidal ideation, wishes or homicidal ideation. He did not express any idea reference or paranoid ideation or delusions. His thinking was logical and goal directed. He reports auditory and visual hallucinations did not appear to be responding to internal stimuli. Insight or understanding of his illness or need for treatment is fair IMPRESSIONS: Schizoaffective disorder, depressive type History of traumatic brain injury Plan: -Patient continues to meet criteria for inpatient psychiatric admission for symptom stabilization and safety. Continue Wellbutrin 300 mg for depression ,continue Abilify for hallucinations and mood Continue Trazodone for insomnia and Buspar for anxiety, Continue Continue Geodon 20 mg IM twice a day when necessary for agitation or aggression. Decrease Ativan dose ,PRN Vistaril for anxiety Evaluate clinical status response to treatment on a daily basis. Encourage participation in therapeutic groups an d activities.
[2020-03-02] MEDS: FINASTERIDE 5 MG TAB PO SCH (09:33)
[2020-03-02] MEDS: LORazepam 0.5 MG TAB PO PRN ×2 (13:22→21:19)
[2020-03-02] MEDS: traZODone HCL 50 MG TAB PO SCH (20:54)
[2020-03-03] MEDS: amLODIPine 10 MG TAB PO SCH (08:32)
[2020-03-03] MEDS: ARIPiprazole 10 MG TAB PO SCH (08:33)
[2020-03-03] MEDS: busPIRone HCl 10 MG TAB PO SCH ×2 (08:33→20:21)
[2020-03-03] MEDS: buPROPion XL 300 MG TAB.ER.24H PO SCH (08:34)
[2020-03-03] MEDS: FINASTERIDE 5 MG TAB PO SCH (08:34)
[2020-03-03] MEDS: VALSARTAN 80 MG TAB PO SCH (08:34)
[2020-03-03] MEDS: NICOTINE POLACRILEX 2 MG GUM BUCCAL PRN ×5 (08:35→20:21)
[2020-03-03] MEDS: LORazepam 0.5 MG TAB PO PRN (08:35)
[2020-03-03] MEDS: hydrOXYzine pamoate 25 MG CAP PO PRN (10:43)
[2020-03-03] MEDS ORDERED: OLANZapine 5 MG TAB PO PRN (13:13)
[2020-03-03] MEDS ORDERED: ARIPiprazole 5 MG TAB PO SCH (13:15)
[2020-03-03] MEDS ORDERED: ARIPiprazole 5 MG TAB PO ONE (13:30)
--- NOTE | 2020-03-03 13:44 | PN ---
PROGRESS NOTE DATE OF SERVICE: 03/03/2020 CHIEF COMPLAINT: The patient was admitted for three weeks of increasing hallucinations and suicidal thinking. INTERVAL HISTORY: Patient has been doing fair. He had a quiet day yesterday. He comes out on the unit. He tends to have a quiet manner. He did attend one group yesterday. In group the following was documented, "Patient shared that his auditory hallucinations are bad and adds if I don't get help this time I am going to end it". The patient states he is fed up with living with auditory hallucinations but then states, "I know it is something I will have to deal with forever, I just want it to be less than what it is right now." The patient reports that he slept well last night. He talked about having switched from Invega Sustenna which he has been off for the last month. He noted breast development and sexual dysfunction as the main problems. He has been started on Abilify. He has not had any problems with the Abilify. He continues to report hallucinations that come and go throughout the day today. Today he said that he will get the hallucinations sometimes he will take a p.r.n. Ativan and Vistaril. He says they do not quiet the voices but they make it a little more tolerable for him to manage. He continues to be quite distressed with the voices. 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 He said he worked for several years and was very successful than when he started struggling with voices he feels that his intellectual performance has progressively declined. He does not feel he has gotten much benefit from starting Abilify, though he tolerates the medications. MENTAL STATUS: Patient sat with a little restlessness. He gave fair eye contact at best. He tended to look down and often a distance. He answered questions with brief responses. His thoughts were clear and coherent. He was not too spontaneous or interactive. His affect was flat, his mood depressed. He was moderately distressed. He continues to report auditory hallucinations. He voiced no thoughts of harm. Cognition was clear. ASSESSMENT: I will continue the current diagnosis and treatment plan. I will increase the patient's Abilify to 15 mg twice a day. I discussed p.r.n. options for the patient. At this point I will start him on Zyprexa 5 mg 3 times a day. The aim of Zyprexa is to help better manage some of the hallucinations he does struggle with while he gets time for Abilify to take better affect. I will discontinue Ativan and Vistaril and continue just with Zyprexa in its place. I had an extensive discussion with the patient regarding the option of getting on clozapine which does appear to be appropriately indicated in his case as the only antipsychotic indicated for treatment resistant schizophrenia. We will focus on stabilization and discharge planning. MMANDERSL / REJIN: [id number] /
[2020-03-03] MEDS: traZODone HCL 50 MG TAB PO SCH (20:22)
[2020-03-03] MEDS: ARIPiprazole 5 MG TAB PO SCH (20:22)
[2020-03-04] MEDS: amLODIPine 10 MG TAB PO SCH (08:25)
[2020-03-04] MEDS: VALSARTAN 80 MG TAB PO SCH (08:25)
[2020-03-04] MEDS: busPIRone HCl 10 MG TAB PO SCH ×2 (08:25→20:34)
[2020-03-04] MEDS: ARIPiprazole 5 MG TAB PO SCH ×2 (08:25→20:34)
[2020-03-04] MEDS: buPROPion XL 300 MG TAB.ER.24H PO SCH (08:25)
[2020-03-04] MEDS: FINASTERIDE 5 MG TAB PO SCH (08:25)
[2020-03-04] MEDS: NICOTINE POLACRILEX 2 MG GUM BUCCAL PRN ×6 (08:25→20:34)
[2020-03-04] MEDS: hydrOXYzine pamoate 25 MG CAP PO PRN (16:20)
[2020-03-04] MEDS: traZODone HCL 50 MG TAB PO SCH (20:34)
--- NOTE | 2020-03-05 00:05 | PN ---
PROGRESS NOTE DATE OF SERVICE: 03/04/2020 CHIEF COMPLAINT: The patient was admitted for 3 weeks of increasing hallucinations and suicidal thinking. INTERVAL HISTORY: The patient has been doing fair. Overall he continues to struggle. He had a quiet day yesterday. He comes out on the unit some. He will wander about. He tends to seem to keep his head down and does not pay too much attention to things going on around him. He said he made one group yesterday. He said the problem he has with some of the groups is that there is a fair amount of noise in the groups and in general, louder noises bother him and sets off anxiety. He did try one dose of Zyprexa at 3:15 in the afternoon. He said it did not seem to help with anxiety, though just made him much tired. He napped afterwards. He does feel Vistaril had been helpful. He slept fair last night. Today he has been up. He continues about the same. He does some pacing around the unit. Again, he mostly keeps to himself. He attended one group this morning. He was observed to be anxious and angry in his manner. He was attentive and his thoughts were clear. The patient continues to report auditory hallucinations. He has not had problems with the increase in Abilify. He is not sure it has made much difference. He said that when he got on Wellbutrin, he thought that has had some benefit to him on the other hand he said that when he first got on BuSpar he thought that helped with anxiety, though for the most part he does not feel BuSpar has been very helpful. He would like to go back to Vistaril as opposed to taking Zyprexa. He tolerates his psychotropic medications. MENTAL STATUS: Patient sat with quite a bit a restlessness. He rubbed both his thighs with both his hands continuously throughout the interview. He kept his head forward and down. He did not give any eye contact at all. He answered questions with brief responses. His thoughts were clear. His affect was anxious and intense. His mood depressed. He was significantly distressed. There was no outward evidence of responding to internal stimuli. He voiced no thoughts of harm. Cognition was clear. ASSESSMENT: I will continue with the current diagnosis and treatment plan. I will restart the patient on Vistaril, increase his p.r.n. dose to 50 mg q.6 hours p.r.n. He continues on Abilify 15 mg twice a day, which was increased yesterday. He is also on trazodone 50 mg at bedtime. I will discontinue the Zyprexa as he feels that it has not been helpful and for the most part only caused him sedation. When I reviewed medication issues with the patient, he stated that he understood it would take some time for Abilify to have affect. He expressed some thought that going off of BuSpar would not be an issue or problem for him. I reviewed side effects. We talked about the option of long-acting injectable Abilify. We will focus on stabilization and discharge planning. ELLA / JESUS: [id number] /
[2020-03-05] MEDS: NICOTINE POLACRILEX 2 MG GUM BUCCAL PRN ×6 (07:46→20:55)
[2020-03-05] MEDS: busPIRone HCl 10 MG TAB PO SCH ×2 (07:46→20:15)
[2020-03-05] MEDS: buPROPion XL 300 MG TAB.ER.24H PO SCH (07:47)
[2020-03-05] MEDS: ARIPiprazole 5 MG TAB PO SCH (07:47)
[2020-03-05] MEDS: VALSARTAN 80 MG TAB PO SCH (07:47)
[2020-03-05] MEDS: FINASTERIDE 5 MG TAB PO SCH (07:47)
[2020-03-05] MEDS: amLODIPine 10 MG TAB PO SCH (07:47)
[2020-03-05] MEDS: hydrOXYzine pamoate 25 MG CAP PO PRN ×3 (08:49→19:17)
--- NOTE | 2020-03-05 09:51 | P.PN ---
Progress Note - Text Progress Note Date: 03/05/20 Interval History: Patient was seen laying down in his bed today and was directable and agreeable to speak with customs entry writer in the office. Patient appeared to be restless and anxious while sitting in the chair speaking with customs entry writer. He claims that he feels "off today". He states that he is continuing to hear voices which are disturbing to him. He states that he has been reading and has been able to distract himself from the voices but states that "I don't want to keep living like this". He cla ims that he has been trying to go to groups however has been distracted. He states that he isn't sleeping fairly at nighttime and has a fair appetite. At this time patient denies any homical ideations, intent or plan. Patient denies any visual hallucinations and denies any paranoia or delusions. He continues to endorse suicidal thoughts however no intent or plan. Patient denies any side effects from the medications and has been compliant with meds. Mental Status Exam: General Appearance: Patient appears to be stated age is alert, directable, and attempts to be cooperative. Wearing glasses and a hooded sweatshirt. Behavior: Patient is calmly seated without any agitated behavior. Appears to be anxious Speech: Patient's speech is fluent and nonpressured. Hesitant Mood/Affect: Mood is improving mildly, admits to anxiety, affect is congruent Suicidality/Homicidality: Patient denies having any suicidal or homicidal ideation intent or plan. Perceptions: Patient denies any visual hallucinations and admits to ongoing auditory hallucinations. Though content/process: There is no evidence of any delusional thought content and thought process is linear and goal-directed. Focus on his symptoms of his medications. Memory and concentration: AOX3, grossly intact for the purposes of this session Judgment and insight: Improving mildly Assessment Schizoaffective disorder, depressive type History of traumatic brain injury Nicotine dependence Plan: -Patient continues to meet criteria for inpatient psychiatric admission for symptom stabilization and safety. Patient has signed adult voluntary form and medication consent and was placed in patient's chart. -Medications: Will commence cross titration of Abilify with Geodon. Will decrease Abilify to 10 mg twice a day and start Geodon today at 20 mg twice a day. Continue with BuSpar 30 mg twice a day for anxiety. Continue with Vistaril when necessary for anxiety. Continue trazodone 50 mg daily at bedtime for insomnia/mood. -Ordered EKG to check QTc interval as patient will be started on Geodon today. -When necessary Ativan and Geodon for agitation/aggression. -NRT - Nicorette gum -SW on board for discharge planning. Encouraged the patient to participate in milieu.
[2020-03-05] MEDS: ZIPRASIDONE 20 MG CAP PO SCH ×2 (15:15→17:44)
[2020-03-05] MEDS: ARIPiprazole 10 MG TAB PO SCH (20:15)
[2020-03-05] MEDS: traZODone HCL 50 MG TAB PO SCH (20:15)
[2020-03-06] MEDS: hydrOXYzine pamoate 25 MG CAP PO PRN ×2 (06:03→12:25)
[2020-03-06] MEDS: amLODIPine 10 MG TAB PO SCH (09:05)
[2020-03-06] MEDS: VALSARTAN 80 MG TAB PO SCH (09:05)
[2020-03-06] MEDS: busPIRone HCl 10 MG TAB PO SCH ×3 (09:05→20:22)
[2020-03-06] MEDS: ARIPiprazole 10 MG TAB PO SCH (09:05)
[2020-03-06] MEDS: FINASTERIDE 5 MG TAB PO SCH (09:06)
[2020-03-06] MEDS: buPROPion XL 300 MG TAB.ER.24H PO SCH (09:06)
[2020-03-06] MEDS: ZIPRASIDONE 20 MG CAP PO SCH (09:06)
[2020-03-06] MEDS: NICOTINE POLACRILEX 2 MG GUM BUCCAL PRN ×5 (09:07→20:22)
--- NOTE | 2020-03-06 09:40 | P.PN ---
Progress Note - Text Progress Note Date: 03/06/20 Interval History: Patient was seen wandering the hallways this morning and was directable and ag reeable to speak with machine sign writer in the office. She appeared to be less restless today and claims that he is feeling overall a bit better. He states that yesterday his anxiety was "through the roof" and described not being able to take any medications to get his anxiety under control. Patient was agreeable to have Ativan as a prn option for him however machine sign writer did explain that this would only be used as a transition onto other medications that can help him more. He claims that he is continuing to hear voices however states that they are less "intense today and more manageable". He states that he has been reading and has been able to distract himself and states that he is going to groups. Patient referred back to his old self prior to the head injury. He claims that he thought few hours of sleep last night and wanted to have his trazodone increased. At this time patient denies any homical ideations, intent or plan. Patient denies any visual hallucinations and denies any paranoia or delusions. He continues to endorse suicidal thoughts however no intent or plan. Patient denies any side effects from the medications and has been compliant with meds. Mental Status Exam: General Appearance: Patient appears to be stated age is alert, directable, and attempts to be cooperative. Wearing glasses and a hooded sweatshirt. Behavior: Patient is calmly seated without any agitated behavior. Appears less anxious today Speech: Patient's speech is fluent and nonpressured. Mood/Affect: Mood is improving mildly, admits to anxiety, affect is congruent Suicidality/Homicidality: Patient denies having any suicidal or homicidal ideation intent or plan. Perceptions: Patient denies any visual hallucinations and admits to ongoing auditory hallucinations. Though content/process: There is no evidence of any delusional thought content and thought process is linear and goal-directed. Focus on his symptoms of his medications. Memory and concentration: AOX3, grossly intact for the purposes of this session Judgment and insight: Improving mildly Assessment Schizoaffective disorder, depressive type History of traumatic brain injury Nicotine dependence Plan: -Patient continues to meet criteria for inpatient psychiatric admission for symptom stabilization and safety. Patient has signed adult voluntary form and medication consent and was placed in patient's chart. -Medications: Will decrease Abilify to 5 mg twice a day, increased Geodon 20 mg + 40 mg a day for psychosis/mood stabilization. Switched BuSpar 20 mg 3 times a day for anxiety. Continue with Vistaril when necessary for anxiety. Increased trazodone 75 mg daily at bedtime for insomnia/mood. -EKG reviewed, normal sinus rhythm and QTC within normal limits and not prolonged. -When necessary Ativan and Geodon for agitation/aggression. -NRT - Nicorette gum -SW on board for discharge planning. Encouraged the patient to participate in milieu.
[2020-03-06] MEDS: ZIPRASIDONE 40 MG CAP PO SCH (17:39)
[2020-03-06] MEDS: ARIPiprazole 5 MG TAB PO SCH (20:22)
[2020-03-06] MEDS ORDERED: traZODone HCL 50 MG TAB PO SCH (21:00)
[2020-03-06] MEDS: LORazepam 1 MG TAB PO PRN (21:28)
[2020-03-07] MEDS ORDERED: ZIPRASIDONE 20 MG CAP PO SCH (08:00)
[2020-03-07] MEDS: NICOTINE POLACRILEX 2 MG GUM BUCCAL PRN ×5 (08:14→18:41)
[2020-03-07] MEDS: VALSARTAN 80 MG TAB PO SCH (08:15)
[2020-03-07] MEDS: FINASTERIDE 5 MG TAB PO SCH (08:16)
[2020-03-07] MEDS: ARIPiprazole 5 MG TAB PO SCH ×2 (08:16→20:40)
[2020-03-07] MEDS: amLODIPine 10 MG TAB PO SCH (08:16)
[2020-03-07] MEDS: buPROPion XL 300 MG TAB.ER.24H PO SCH (08:16)
[2020-03-07] MEDS: busPIRone HCl 10 MG TAB PO SCH ×3 (08:16→20:39)
[2020-03-07] MEDS: hydrOXYzine pamoate 25 MG CAP PO PRN (10:25)
--- NOTE | 2020-03-07 11:18 | P.PN ---
Progress Note - Text Progress Note Date: 03/07/20 Interval History: Patient was seen wandering the hallways this morning and was directable and ag reeable to speak with entry writer in the office. Patient continues to appear to be anxious and was moving his hands over his thighs repeatedly while talking brighter. He claims that his mood is continuing to feel depressed and he still dealing with his anxiety. He staying that he is taking the Vistaril which is helping a bit. Patient was open to be trying a new antidepressant today Cymbalta and a risks and benefits were reviewed with the patient and he was agreeable to take it. He claims that he was able to sleep a bit better last night however was agreeable to have his trazodone increased once again. He states that he is using coping skills and techniques to try to reduce the voices that he is experiencing and claims that it has been helping him significantly in the voices have quieted significantly. At this time patient denies any homical ideations, intent or plan. Patient denies any visual hallucinations and denies any paranoia or delusions. He continues to endorse suicidal thoughts however no intent or plan. Patient denies any side effects from the medications and has been compliant with meds. Mental Status Exam: General Appearance: Patient appears to be stated age is alert, directable, and attempts to be cooperative. Wearing glasses and a hooded sweatshirt. Behavior: Patient is calmly seated without any agitated behavior. Appears less anxious today Speech: Patient's speech is fluent and nonpressured. Mood/Affect: Mood is improving mildly, admits to anxiety, affect is congruent Suicidality/Homicidality: Patient denies having any suicidal or homicidal ideation intent or plan. Perceptions: Patient denies any visual hallucinations and admits to ongoing auditory hallucinations. Though content/process: There is no evidence of any delusional thought content and thought process is linear and goal-directed. Focus on his symptoms of his medications. Memory and concentration: AOX3, grossly intact for the purposes of this session Judgment and insight: Improving mildly Assessment Schizoaffective disorder, depressive type History of traumatic brain injury Nicotine dependence Plan: -Patient continues to meet criteria for inpatient psychiatric admission for sym ptom stabilization and safety. Patient has signed adult voluntary form and medication consent and was placed in patient's chart. -Medications: Will decrease Abilify to 2.5 mg twice a day, will discontinue tomorrow. Increased Geodon 40 mg + 40 mg a day for psychosis/mood stabilization. Continue with BuSpar 20 mg 3 times a day for anxiety. Continue with Vistaril when necessary for anxiety. Increased trazodone 100 mg daily at bedtime for insomnia/mood. Added Cymbalta 30 mg daily for mood/anxiety. -EKG reviewed, normal sinus rhythm and QTC within normal limits and not prolonged. -When necessary Ativan and Geodon for agitation/aggression. -NRT - Nicorette gum -SW on board for discharge planning. Encouraged the patient to participate in milieu.
[2020-03-07] MEDS: DULoxetine HCL 30 MG CAPSULE.DR PO SCH (11:21)
[2020-03-07] MEDS: LORazepam 1 MG TAB PO PRN ×2 (13:47→20:41)
[2020-03-07] MEDS: ZIPRASIDONE 40 MG CAP PO SCH (17:42)
[2020-03-07] MEDS: traZODone HCL 100 MG TAB PO SCH (20:39)
[2020-03-08] MEDS: DULoxetine HCL 30 MG CAPSULE.DR PO SCH ×2 (07:22→20:40)
[2020-03-08] MEDS: busPIRone HCl 10 MG TAB PO SCH ×3 (07:22→20:40)
[2020-03-08] MEDS: NICOTINE POLACRILEX 2 MG GUM BUCCAL PRN ×5 (07:22→18:35)
[2020-03-08] MEDS: LORazepam 1 MG TAB PO PRN ×3 (07:22→22:33)
[2020-03-08] MEDS: amLODIPine 10 MG TAB PO SCH (07:22)
[2020-03-08] MEDS: buPROPion XL 300 MG TAB.ER.24H PO SCH (07:23)
[2020-03-08] MEDS: ARIPiprazole 5 MG TAB PO SCH (07:23)
[2020-03-08] MEDS: VALSARTAN 80 MG TAB PO SCH (07:24)
[2020-03-08] MEDS: FINASTERIDE 5 MG TAB PO SCH (07:25)
[2020-03-08] MEDS: ZIPRASIDONE 40 MG CAP PO SCH ×2 (08:19→18:41)
--- NOTE | 2020-03-08 09:32 | P.PN ---
Progress Note - Text Progress Note Date: 03/08/20 Interval History: Patient was seen wandering the hallways this morning and was directable and ag reeable to speak with service writer in the office. Patient appeared to have a brighter affect this morning and states that overall he is doing mildly better today. He claims that yesterday the voices "really calm down". He states that he feels the Geodon has been helping him. He claims that his anxiety is still prevalent throughout the day and claims that he does not know yet if the Cymbalta has been helping his mood. He claims that he feels more optimistic about the future and also with controlling the voices. He spoke about certain coping skills that he has with his voices to help calm him down. He continues to state that he has had fleeting thoughts of suicide however no intent or plan. Last night he claims that he was able to sleep mainly throughout the night however awoke one to 2 times. At this time patient denies any homical ideations, intent or plan. Patient denies any visual hallucinations and denies any paranoia or delusions. He continues to endorse suicidal thoughts however no intent or plan. Patient denies any side effects from the medications and has been compliant with meds. Mental Status Exam: General Appearance: Patient appears to be stated age is alert, directable, and attempts to be cooperative. Wearing glasses and a hooded sweatshirt. Behavior: Patient is calmly seated without any agitated behavior. Appears less anxious today Speech: Patient's speech is fluent and nonpressured. Mood/Affect: Mood is improving mildly, admits to anxiety, affect is congruent Suicidality/Homicidality: Patient denies having any suicidal or homicidal ideation intent or plan. Perceptions: Patient denies any visual hallucinations and admits to ongoing auditory hallucinations. Though content/process: There is no evidence of any delusional thought content and thought process is linear and goal-directed. Focused on his symptoms of his medications. Memory and concentration: AOX3, grossly intact for the purposes of this session Judgment and insight: Improving mildly Assessment Schizoaffective disorder, depressive type History of traumatic brain injury Nicotine dependence Plan: -Patient continues to meet criteria for inpatient psychiatric admission for symptom stabilization and safety. Patient has signed adult voluntary form and medication consent and was placed in patient's chart. -Medications: We'll discontinue Abilify. Continue with Geodon 40 mg + 40 mg a day for psychosis/mood stabilization. Continue with BuSpar 20 mg 3 times a day for anxiety. Continue with Vistaril when necessary for anxiety. Continue with trazodone 100 mg daily at bedtime for insomnia/mood. Increased Cymbalta 30 mg bid for mood/anxiety. -EKG, normal sinus rhythm and QTC within normal limits and not prolonged. -When necessary Ativan and Geodon for agitation/aggression. -NRT - Nicorette gum -SW on board for discharge planning. Encouraged the patient to participate in milieu.
[2020-03-08 15:38] VITALS: BMI 27.6
[2020-03-08] MEDS: traZODone HCL 100 MG TAB PO SCH (20:40)
[2020-03-09] MEDS: ZIPRASIDONE 40 MG CAP PO SCH (07:54)
[2020-03-09] MEDS: DULoxetine HCL 30 MG CAPSULE.DR PO SCH (07:54)
[2020-03-09] MEDS: LORazepam 1 MG TAB PO PRN ×2 (07:54→15:28)
[2020-03-09] MEDS: VALSARTAN 80 MG TAB PO SCH (07:54)
[2020-03-09] MEDS: busPIRone HCl 10 MG TAB PO SCH ×3 (07:54→22:54)
[2020-03-09] MEDS: buPROPion XL 300 MG TAB.ER.24H PO SCH (07:54)
[2020-03-09] MEDS: amLODIPine 10 MG TAB PO SCH (07:54)
[2020-03-09] MEDS: FINASTERIDE 5 MG TAB PO SCH (07:54)
[2020-03-09] MEDS: NICOTINE POLACRILEX 2 MG GUM BUCCAL PRN ×4 (07:57→19:43)
--- NOTE | 2020-03-09 11:24 | P.PN ---
Progress Note - Text Progress Note Date: 03/09/20 Interval History: Patient was seen wandering the hallways this morning and was directable and ag reeable to speak with screen writer in the office. Patient appeared to have a brighter affect this morning, he states that he was able to sleep better last night. He claims that he wants to remain on the same dose of trazodone. He continues to claim that the voices having calming down however he states that at night they are worse. He states that he feels the Geodon has been helping him, and is denying any side effects at this time. Patient was agreeable to this Geodon increased for tonight. He claims that his anxiety is still prevalent throughout the day however this has been improving as well. He spoke about certain coping skills that he has with his voices to help calm him down. He continues to state that he has had fleeting thoughts of suicide however no intent or plan. At this time patient denies any homical ideations, intent or plan. Patient denies any visual hallucinations and denies any paranoia or delusions. He continues to endorse suicidal thoughts however no intent or plan. Patient denies any side effects from the medications and has been compliant with meds. Mental Status Exam: General Appearance: Patient appears to be stated age is alert, directable, and attempts to be cooperative. Wearing glasses and a hooded sweatshirt. Behavior: Patient is calmly seated without any agitated behavior. Appears less anxious today Speech: Patient's speech is fluent and nonpressured. Mood/Affect: Mood is improving mildly, admits to anxiety, affect is congruent Suicidality/Homicidality: Patient denies having any homicidal ideation intent or plan. He admits to fleeting thoughts of suicide which have been improving, no intent or plan. Perceptions: Patient denies any visual hallucinations and admits to ongoing auditory hallucinations. Though content/process: There is no evidence of any delusional thought content and thought process is linear and goal-directed. Memory and concentration: AOX3, grossly intact for the purposes of this session Judgment and insight: Improving mildly Assessment Schizoaffective disorder, depressive type History of traumatic brain injury Nicotine dependence Plan: -Patient continues to meet criteria for inpatient psychiatric admission for s ymptom stabilization and safety. Patient has signed adult voluntary form and medication consent and was placed in patient's chart. -Medications: Increased Geodon 40 mg + 60 mg a day for psychosis/mood stabilization. Continue with BuSpar 20 mg 3 times a day for anxiety. Continue with Vistaril when necessary for anxiety. Continue with trazodone 100 mg daily at bedtime for insomnia/mood. Increased Cymbalta 30 mg + 60mg qhs for mood/anxiety. -EKG, normal sinus rhythm and QTC within normal limits and not prolonged. We will check a second EKG tomorrow morning. -When necessary Ativan and Geodon for agitation/aggression. -NRT - Nicorette gum -SW on board for discharge planning. Encouraged the patient to participate in milieu. Likely discharge next week.
[2020-03-09] MEDS: ZIPRASIDONE 60 MG CAP PO SCH (18:00)
[2020-03-09] MEDS: traZODone HCL 100 MG TAB PO SCH (20:03)
[2020-03-09] MEDS: DULoxetine HCL 60 MG CAPSULE.DR PO SCH (20:03)
[2020-03-10] MEDS: FINASTERIDE 5 MG TAB PO SCH (07:50)
[2020-03-10] MEDS: DULoxetine HCL 30 MG CAPSULE.DR PO SCH (07:50)
[2020-03-10] MEDS: ZIPRASIDONE 40 MG CAP PO SCH (07:50)
[2020-03-10] MEDS: amLODIPine 10 MG TAB PO SCH (07:50)
[2020-03-10] MEDS: VALSARTAN 80 MG TAB PO SCH (07:50)
[2020-03-10] MEDS: buPROPion XL 300 MG TAB.ER.24H PO SCH (07:50)
[2020-03-10] MEDS: busPIRone HCl 10 MG TAB PO SCH ×3 (07:50→21:16)
[2020-03-10] MEDS: NICOTINE POLACRILEX 2 MG GUM BUCCAL PRN ×5 (07:51→21:16)
[2020-03-10] MEDS: LORazepam 1 MG TAB PO PRN ×2 (07:51→15:17)
--- NOTE | 2020-03-10 10:15 | P.PN ---
Progress Note - Text Progress Note Date: 03/10/20 Interval history: Patient was seen attending group and was directable and agreeable to speak with insurance writer. Patient reports that he feels like he is doing well. He reports that he continues to experience auditory hallucinations, especially at night, but that they are improving overall. He also reports that his suicidal ideation has decreased in intensity and frequency. He is not reporting any visual hallucinations or homicidal ideation, intention, and/or plan at this time. He is not reporting any significant side effects of his medications and has been adherent. He is not reporting any intention or plan for suicide. Mental status exam: General Appearance: Patient appears to be stated age is alert, directable, and cooperative. Patient is wearing glasses and a mask. Behavior: No agitated behavior. Patient is calm and directable Speech: Patient's speech is fluent and nonpressured. Mood/Affect: Mood is improving mildly, affect is congruent and constricted. Suicidality/Homicidality: Patient denies any homicidal ideation, intention, and/or plan. Reports suicidal ideation but no intention or plan. Perceptions: Patient reports auditory hallucinations. He denies any visual hallucinations. Though content/process: There is no evidence of any delusional thought content and thought process is linear and goal-directed. Memory and concentration: AOX3, grossly intact for the purposes of this session Judgment and insight: improving mildly Assessment/Plan: Continue with current diagnosis. Patient continues to meet criteria for inpatient psychiatric admission for symptom stabilization and safety.Patient will be maintained on current psychotropic medication regimen. Monitor for medication compliance and for any psychotropic medication side effects. Will continue to monitor ongoing response to treatment. Encouraged participation in milieu.
[2020-03-10] MEDS: ZIPRASIDONE 60 MG CAP PO SCH (17:46)
[2020-03-10] MEDS: DULoxetine HCL 60 MG CAPSULE.DR PO SCH (21:15)
[2020-03-10] MEDS: traZODone HCL 100 MG TAB PO SCH (21:16)
[2020-03-11] MEDS: LORazepam 1 MG TAB PO PRN ×3 (04:21→19:15)
[2020-03-11] MEDS: amLODIPine 10 MG TAB PO SCH (07:44)
[2020-03-11] MEDS: ZIPRASIDONE 40 MG CAP PO SCH (07:44)
[2020-03-11] MEDS: buPROPion XL 300 MG TAB.ER.24H PO SCH (07:44)
[2020-03-11] MEDS: VALSARTAN 80 MG TAB PO SCH (07:44)
[2020-03-11] MEDS: NICOTINE POLACRILEX 2 MG GUM BUCCAL PRN ×5 (07:44→18:55)
[2020-03-11] MEDS: busPIRone HCl 10 MG TAB PO SCH ×3 (07:44→20:18)
[2020-03-11] MEDS: DULoxetine HCL 30 MG CAPSULE.DR PO SCH (07:44)
[2020-03-11] MEDS: FINASTERIDE 5 MG TAB PO SCH (08:33)
--- NOTE | 2020-03-11 10:00 | P.PN ---
Progress Note - Text Progress Note Date: 03/11/20 Interval history: Patient was seen resting in bed and was agreeable to speak with specification writer in his room with no one was present. She reports that he had difficulty sleeping last night. He reports that he woke up at 3 AM and is expressing auditory hallucinations. He reports that the voices were telling him to not take his medications and that they were going to "get him." He states that he took an Ativan and was able to sleep afterwards. He does report suicidal ideation which she states is because he looks back on how successful he has been in his life and where he is currently. He is reporting no intention or plan at this time. He reports he feels safe while on the unit but is unsure how he would be if he was to be discharged. He is not reporting any homicidal ideation, intention, and/or plan. He's been in adherent with his medications and denies any side ef fects at this time. Mental status exam: General Appearance: Patient appears to be stated age is alert, directable, and cooperative. Patient is wearing glasses with fair hygiene and grooming. Behavior: No agitated behavior. Patient is calm and directable Speech: Patient's speech is fluent and nonpressured. Mood/Affect: Mood is improving mildly, affect is congruent and constricted. Suicidality/Homicidality: Patient denies any homicidal ideation, intention, and/or plan. Reports suicidal ideation but no intention or plan. Perceptions: Patient reports auditory hallucinations. He denies any visual hallucinations. Though content/process: There is no evidence of any delusional thought content and thought process is linear and goal-directed. Memory and concentration: AOX3, grossly intact for the purposes of this session Judgment and insight: improving mildly Assessment/Plan: Continue with current diagnosis. Patient continues to meet criteria for inpatient psychiatric admission for symptom stabilization and safety.patient will be maintained on his current second trip medication regimen except we will increase his trazodone to 150 mg by mouth at bedtime for insomnia/depression. Monitor for medication compliance and for any psychotropic medication side effects. Will continue to monitor ongoing response to treatment. Encouraged participation in milieu.
[2020-03-11] MEDS ORDERED: INFLUENZA VACCINE (6 MOS+) 60 MCG/0.5 ML SYRINGE IM ONE (13:37)
[2020-03-11] MEDS: ZIPRASIDONE 60 MG CAP PO SCH (17:57)
[2020-03-11] MEDS: DULoxetine HCL 60 MG CAPSULE.DR PO SCH (20:18)
[2020-03-11] MEDS: traZODone HCL 50 MG TAB PO SCH (20:19)
[2020-03-12] MEDS: LORazepam 1 MG TAB PO PRN ×3 (06:03→21:16)
[2020-03-12] MEDS: DULoxetine HCL 30 MG CAPSULE.DR PO SCH (08:44)
[2020-03-12] MEDS: VALSARTAN 80 MG TAB PO SCH (08:44)
[2020-03-12] MEDS: FINASTERIDE 5 MG TAB PO SCH (08:44)
[2020-03-12] MEDS: ZIPRASIDONE 40 MG CAP PO SCH (08:44)
[2020-03-12] MEDS: amLODIPine 10 MG TAB PO SCH (08:44)
[2020-03-12] MEDS: busPIRone HCl 10 MG TAB PO SCH ×3 (08:44→21:16)
[2020-03-12] MEDS: NICOTINE POLACRILEX 2 MG GUM BUCCAL PRN ×4 (08:45→21:16)
[2020-03-12] MEDS: buPROPion XL 300 MG TAB.ER.24H PO SCH (08:45)
[2020-03-12] MEDS ORDERED: ZIPRASIDONE 20 MG CAP PO STA (09:12)
[2020-03-12] MEDS ORDERED: DULoxetine HCL 30 MG CAPSULE.DR PO ONE (09:15)
--- NOTE | 2020-03-12 09:23 | P.PN ---
Progress Note - Text Progress Note Date: 03/12/20 Interval History: Patient was seen wandering the hallways this morning and was directable and ag reeable to speak with verse writer in the office. Patient appeared to have a brighter affect this morning. He continues to state that he feels suicidal and has been having thoughts of wanting to harm himself however has no plan or intent in the hospital. He claims that his mood is gradually been getting better on the Cymbalta and is okay to have the dose increased. He claims that his anxiety has been gradually getting better. He states that he has been able to sleep better throughout the night however states that on Thursday night he felt that the voices were getting stronger however has calmed down since then. He states that the increase in trazodone has helped him sleep more. He states that he is trying to go to groups and work on his coping skills as best as he can. At this time patient denies any homical ideations, intent or plan. Patient denies any visual hallucinations and denies any paranoia or delusions. He continues to endorse suicidal thoughts however no intent or plan. Patient denies any side effects from the medications and has been compliant with meds. Mental Status Exam: General Appearance: Patient appears to be stated age is alert, directable, and attempts to be cooperative. Wearing glasses and a hooded sweatshirt. Behavior: Patient is calmly seated without any agitated behavior. Appears less anxious today Speech: Patient's speech is fluent and nonpressured. Mood/Affect: Mood is improving mildly, admits to anxiety, affect is congruent Suicidality/Homicidality: Patient denies having any homicidal ideation intent or plan. He admits to ongoing thoughts of suicide which have been improving, no intent or plan. Perceptions: Patient denies any visual hallucinations and admits to ongoing auditory hallucinations. Though content/process: There is no evidence of any delusional thought content and thought process is linear and goal-directed. Memory and concentration: AOX3, grossly intact for the purposes of this session Judgment and insight: Improving mildly Assessment Schizoaffective disorder, depressive type History of traumatic brain injury Nicotine dependence Plan: -Patient continues to meet criteria for inpatient psychiatric admission for symptom stabilization and safety. Patient has signed adult voluntary form and medication consent and was placed in patient's chart. -Medications: Increased Geodon 60 mg + 60 mg a day for psychosis/mood sta bilization. Continue with BuSpar 20 mg 3 times a day for anxiety. Continue with Vistaril when necessary for anxiety. Continue with trazodone 150 mg daily at bedtime for insomnia/mood. Increased Cymbalta 60 mg + 60mg qhs for mood/anxiety. Consider lithium as mood adjunct tomorrow if patient continues to have suicidal thoughts. -EKG completed on 03/10, normal sinus rhythm and QTC within normal limits and not prolonged. -When necessary Ativan and Geodon for agitation/aggression. -NRT - Nicorette gum -SW on board for discharge planning. Encouraged the patient to participate in milieu. Likely discharge in 2-3 days.
[2020-03-12] MEDS: ZIPRASIDONE 60 MG CAP PO SCH (18:41)
[2020-03-12] MEDS: traZODone HCL 50 MG TAB PO SCH (21:15)
[2020-03-12] MEDS: DULoxetine HCL 60 MG CAPSULE.DR PO SCH (21:16)
[2020-03-13] MEDS: NICOTINE POLACRILEX 2 MG GUM BUCCAL PRN ×5 (06:25→19:22)
[2020-03-13] MEDS: LORazepam 1 MG TAB PO PRN ×3 (06:25→21:30)
[2020-03-13] MEDS: VALSARTAN 80 MG TAB PO SCH (08:57)
[2020-03-13] MEDS: FINASTERIDE 5 MG TAB PO SCH (08:58)
[2020-03-13] MEDS: DULoxetine HCL 60 MG CAPSULE.DR PO SCH ×2 (09:00→20:42)
[2020-03-13] MEDS: ZIPRASIDONE 60 MG CAP PO SCH (09:01)
[2020-03-13] MEDS: amLODIPine 10 MG TAB PO SCH (09:01)
[2020-03-13] MEDS: busPIRone HCl 10 MG TAB PO SCH ×3 (09:01→20:42)
[2020-03-13] MEDS: buPROPion XL 300 MG TAB.ER.24H PO SCH (09:01)
--- NOTE | 2020-03-13 09:58 | P.PN ---
Progress Note - Text Progress Note Date: 03/13/20 Interval History: Patient was seen wandering the hallways this morning speaking with other patie nts and was directable and agreeable to speak with film writer in the office. Patient appeared to be more cooperative film writer today and states that he is feeling overall a bit better however continues to state that he is having suicidal thoughts which have not gotten better. He claims that these are mainly fleeting thoughts in the occur mainly at nighttime. He denies having any current or plan at this time. He states that he has been going to group and trying to distract himself as best as he can. He states that the voices are continuing at nighttime however have significantly improved. He claims that his mood is gradually been getting better on the Cymbalta with regards to his depression and also his anxiety. He states that he has been able to sleep better throughout the night. He states that he is trying to go to groups and work on his coping skills as best as he can. He also claims that he spoke with his mother yesterday over the phone. He claims that it is coming up on his formerly [facility]'s anniversary of his last year. At this time patient denies any homical ideations, intent or plan. Patient denies any visual hallucinations and denies any paranoia or delusions. He continues to endorse suicidal thoughts however no intent or plan. Patient denies any side effects from the medications and has been compliant with meds. Mental Status Exam: General Appearance: Patient appears to be stated age is alert, directable, and attempts to be cooperative. Wearing glasses and a hooded sweatshirt. Behavior: Patient is calmly seated without any agitated behavior. Appears less anxious today Speech: Patient's speech is fluent and nonpressured. Mood/Affect: Mood is improving mildly, admits to anxiety, affect is congruent Suicidality/Homicidality: Patient denies having any homicidal ideation intent or plan. He admits to ongoing thoughts of suicide which have been improving mildly, no intent or plan. Perceptions: Patient denies any visual hallucinations and admits to ongoing au ditory hallucinations. Though content/process: There is no evidence of any delusional thought content and thought process is linear and goal-directed. Memory and concentration: AOX3, grossly intact for the purposes of this session Judgment and insight: Improving mildly Assessment Schizoaffective disorder, depressive type History of traumatic brain injury Nicotine dependence Plan: -Patient continues to meet criteria for inpatient psychiatric admission for symptom stabilization and safety. Patient has signed adult voluntary form and medication consent and was placed in patient's chart. -Medications: Increased Geodon 80 mg qhs + 60 mg daily for psychosis/mood stabilization. Continue with BuSpar 20 mg 3 times a day for anxiety. Continue with Vistaril when necessary for anxiety. Continue with trazodone 150 mg daily at bedtime for insomnia/mood. continue with Cymbalta 60 mg + 60mg qhs for mood/anxiety. Added lithium 150 mg twice a day as a mood adjunct and also for suicidal ideations. -EKG completed on 03/10, normal sinus rhythm and QTC within normal limits and not prolonged. Will reorder EKG tomorrow morning. -When necessary Ativan and Geodon for agitation/aggression. -NRT - Nicorette gum -SW on board for discharge planning. Encouraged the patient to participate in milieu. Likely discharge in 2-3 days.
[2020-03-13] MEDS: LITHIUM CARBONATE 150 MG CAP PO SCH ×2 (10:06→20:42)
[2020-03-13] MEDS: ZIPRASIDONE 80 MG CAP PO SCH (17:17)
[2020-03-13] MEDS: traZODone HCL 50 MG TAB PO SCH (20:42)
[2020-03-14] MEDS: LORazepam 1 MG TAB PO PRN ×3 (06:40→21:12)
[2020-03-14] MEDS: NICOTINE POLACRILEX 2 MG GUM BUCCAL PRN ×5 (06:40→16:33)
[2020-03-14] MEDS: VALSARTAN 80 MG TAB PO SCH (08:34)
[2020-03-14] MEDS: buPROPion XL 300 MG TAB.ER.24H PO SCH (08:35)
[2020-03-14] MEDS: FINASTERIDE 5 MG TAB PO SCH (08:35)
[2020-03-14] MEDS: LITHIUM CARBONATE 150 MG CAP PO SCH ×2 (08:35→21:09)
[2020-03-14] MEDS: amLODIPine 10 MG TAB PO SCH (08:35)
[2020-03-14] MEDS: busPIRone HCl 10 MG TAB PO SCH ×3 (08:35→21:08)
[2020-03-14] MEDS: ZIPRASIDONE 60 MG CAP PO SCH (08:35)
[2020-03-14] MEDS: DULoxetine HCL 60 MG CAPSULE.DR PO SCH ×2 (08:36→21:09)
--- NOTE | 2020-03-14 09:08 | P.PN ---
Progress Note - Text Progress Note Date: 03/14/20 Interval History: Patient was seen wandering the hallways this morning and was directable and ag reeable to speak with music writer in the office. Patient appeared to be more cooperative music writer today. Claims that he did have minor thoughts of suicide yesterday however they have dramatically decreased today. He claims that his mood and anxiety of been continuing to improve. He claims that these are mainly fleeting thoughts in the occur mainly at nighttime. He denies having any current or plan at this time. He states that he has been going to group and working on his coping skills and try to distract himself. He states that the voices have significantly improved. He states that he is able to fall asleep at night however had 2 awakenings last night however didn't explain why. He claimed that he has been speaking with his mother on the phone. He claims that it is coming up on his father's anniversary of his last year, which is today. At this time patient denies any homical ideations, intent or plan. Patient denies any visual hallucinations and denies any paranoia or delusions. Patient denies any side effects from the medications and has been compliant with meds. Mental Status Exam: General Appearance: Patient appears to be stated age is alert, directable, and attempts to be cooperative. Wearing glasses and a hooded sweatshirt. Behavior: Patient is calmly seated without any agitated behavior. Calm her today Speech: Patient's speech is fluent and nonpressured. Mood/Affect: Mood is improving mildly, affect is congruent Suicidality/Homicidality: Patient denies having any homicidal ideation intent or plan. He admits to ongoing thoughts of suicide which have been improving significantly, no intent or plan. Perceptions: Patient denies any visual hallucinations and admits to ongoing auditory hallucinations. Though content/process: There is no evidence of any delusional thought content and thought process is linear and goal-directed. Memory and concentration: AOX3, grossly intact for the purposes of this session Judgment and insight: Improving mildly Assessment: Schizoaffective disorder, depressive type History of traumatic brain injury Nicotine dependence Plan: -Patient continues to meet criteria for inpatient psychiatric admission for symptom stabilization and safety. Patient has signed adult voluntary form and medication consent and was placed in patient's chart. -Medications: Continue with Geodon 80 mg qhs + 60 mg daily for psychosis/mood stabilization. Continue with BuSpar 20 mg 3 times a day for anxiety. Continue with Vistaril when necessary for anxiety. Continue with trazodone 150 mg daily at bedtime for insomnia/mood. continue with Cymbalta 60 mg + 60mg qhs for mood/anxiety. Continue with lithium 150 mg twice a day as a mood adjunct and also for suicidal ideations. -EKG completed on 03/10, normal sinus rhythm and QTC within normal limits and not prolonged. Will reorder EKG today to check QTc interval. -When necessary Ativan and Geodon for agitation/aggression. -NRT - Nicorette gum -SW on board for discharge planning. Encouraged the patient to participate in milieu. Likely discharge tomorrow.
[2020-03-14] MEDS: ZIPRASIDONE 80 MG CAP PO SCH (17:52)
[2020-03-14] MEDS: traZODone HCL 50 MG TAB PO SCH (21:08)
[2020-03-15 06:40] VITALS: BP 119/63; PULSE 80; RESP 16
[2020-03-15] MEDS: NICOTINE POLACRILEX 2 MG GUM BUCCAL PRN ×2 (06:45→08:52)
[2020-03-15] MEDS: LORazepam 1 MG TAB PO PRN (06:45)
[2020-03-15] MEDS: DULoxetine HCL 60 MG CAPSULE.DR PO SCH (08:52)
[2020-03-15] MEDS: LITHIUM CARBONATE 150 MG CAP PO SCH (08:52)
[2020-03-15] MEDS: busPIRone HCl 10 MG TAB PO SCH (08:52)
[2020-03-15] MEDS: buPROPion XL 300 MG TAB.ER.24H PO SCH (08:52)
[2020-03-15] MEDS: FINASTERIDE 5 MG TAB PO SCH (08:52)
[2020-03-15] MEDS: amLODIPine 10 MG TAB PO SCH (08:52)
[2020-03-15] MEDS: ZIPRASIDONE 60 MG CAP PO SCH (08:52)
[2020-03-15] MEDS: VALSARTAN 80 MG TAB PO SCH (08:52)
[2020-03-15] MEDS ORDERED: ZIPRASIDONE 20 MG CAP PO STA (09:24)
--- NOTE | 2020-03-15 10:22 | P.DS ---
Providers Date of admission: 02/29/20 03:38 Expected date of discharge: 03/15/20 Attending physician: José Kaufman MD Consults: 02/29/20 03:39 Consult Physician Routine Consulting Provider: Quentin Physician Consult Reason/Comments: Medical H and P Do you want consulting provider notified?: Yes Primary care physician: Stated None - Discharge Diagnosis(es) (1) Schizoaffective disorder, depressive type Current Visit: Yes Status: Acute Priority: High (2) History of traumatic brain injury Current Visit: Yes Status: Acute Priority: High (3) Nicotine dependence Current Visit: Yes Status: Acute Priority: Low Hospital Course: Admission HPI: Admission note was committed by account underwriter "Patient is a 39-year-old male with a history of bipolar disorder who currently lives with his mother is single and has no kids. Patient presented to the hospital yesterday in the ER and complained of having his medications changed and apparently not having good control of his psychiatric symptoms recently. According to ER report patient was complaining of depression and suicidal thoughts and auditory hallucinations. Patient was previous to discharge from the mental health unit in August 2019 and was following up at [facility] for his psychiatric treatment. The patient was admitted to the unit voluntarily and spoke of having an increase in his symptoms for the past 3 weeks. He spoke of things initially "going well after he left the unit in August" however states that over time and especially the past 3 weeks his symptoms have gotten much worse and has been having worse auditory hallucinations. He states that the voices are "unbearable and I just want him to end". He claims that this is disrupting his functioning in his life. He claims that he is very worried about his symptoms. He states that he is feeling depressed and anxious as been having poor sleep. He claims that "I may fraction of what I used to be". He claims that he has been following up with his appointments and taking his medications however has been off his paliperidone injection for the past month and was supposed to be switched onto Abilify however has not taken it yet. He claims of poor sleep and fair appetite. Patient was not responding to internal stimuli and was logical and non-bizarre during interview. Patient denies any homicidal ideations intent or plan. He does admit to having suicidal thoughts however no intent or plan. At this time patient denies visual hallucinations. Patient denies using any recreational substances at this time any cigarettes or alcohol as well." Hospital course: Upon admission to the unit patient was initially depressed and hearing voices and very loud noises and struggling with suicidal thoughts. Patient was however directable and agreeable to commence treatment and signed adult voluntary form. Patient got along well with other patients on the unit and followed unit protocol. Patient was compliant with the medications and denied any side effects throughout hospital course. Patient was started on Abilify initially by mouth however patient developed more anxiety and was not having good control of his psychotic symptoms and the decision was made to discontinue this. Patient was then agreeable to start Geodon and titrated up to a dose of 80 mg twice a day for psychosis. Patient was also started on BuSpar and titrated up to a dose of 30 mg twice a day for anxiety, trazodone titrated up to a dose of 150 mg daily at bedtime for insomnia/mood and also patient was started on Cymbalta titrated up to a dose of 60 mg twice a day for mood/anxiety. Due to patient's suicidal thoughts he was agreeable to start lithium 150 mg twice a day as a mood adjunct along with treatment for suicidal ideations. Patient spoke of his stressors and engaged in therapy both group and individual. Patient was also seen by medical team for history and physical exam. Patient also had regular EKGs to monitor QTc interval which did not show any prolongation. Throughout the course of the hospitalization patient gradually improved with regards to mood, anxiety, psychosis/hallucinations sleep and became future oriented with improved insight and judgment. On the day of discharge patient denied any suicidal or homicidal ideations intent or plan denied any auditory or visual hallucinations. Patient endorsed wanting to live for his health and family. The patient denied any access to guns or weapons. Patient denied any paranoia and did not endorse any delusions. Patient does not have a significant history of substance abuse however was counseled on abstaining from all substances including alcohol and marijuana. Patient was also counseled on the medications and need for regular compliance and was encouraged to follow-up with their outpatient appointment for mental health and also for primary care. Patient refused to sign release of information for social work program coordinator to contact his mother as patient opted to instead of going back to his mother's house to live, wanted to go to the prison to stay for approximately one month to be close to a job in the city. Mental status exam: General Appearance: Patient appears to be stated age is alert, pleasant, and cooperative. Patient is in no acute distress and has improved hygiene and grooming Behavior: Patient is calmly seated without any agitated behavior. cooperative. Speech: Patient's speech is fluent and nonpressured. Mood/Affect: Patient reports their mood is "better", affect is congruent and euthymic. Suicidality/Homicidality: Patient denies having any suicidal or homicidal ideation intent or plan. Perceptions: Patient denies any auditory or visual hallucinations. Though content/process: There is no evidence of any delusional thought content and thought process is linear and goal-directed. more future oriented Memory and concentration: AOX3, grossly intact for the purposes of this session. Can spell "WORLD" backwards correctly. Judgment and insight: improved with guarded prognosis Impression: Schizoaffective disorder, depressive type History of traumatic brain injury Nicotine dependence Plan: -Continue with discharge today as patient has improved and stabilized psychiatrically and is not currently an imminent threat to himself and/or others. -Continue medications: Continue with Geodon 80 mg twice a day for psychosis/mood stabilization, BuSpar 30 mg twice a day for anxiety, trazodone 150 mg nightly for insomnia/mood, Cymbalta 60 mg twice a day for mood/anxiety, lithium 150 mg twice a day as a mood adjunct and also for suicidal ideations. -Patient was counseled on the need for medication compliance and appropriate follow-up at mental health and also primary care for medical issues. Patient verbalized understanding and agreed. -Social work to help patient with discharged to a prison as this was patient's decision as he did not want to go back to his mother's place. Social work also to arrange for patients follow up appointments with [facility] for psychiatric care along with follow up with primary care provider. -Patient counseled on abstaining from recreational drugs and marijuana and alcohol. Was informed/educated on the adverse effects on their physical and mental health. Patient verbally agreed and understood. -Patient was instructed to return to the hospital or seek immediate medical care if their psychiatric or medical symptoms do worsen or reoccur. Allergies Allergy/AdvReac Type Severity Reaction Status Date / Time diphenhydramine Allergy Rash/Hives Verified 03/11/20 12:29 [From Benadryl] ibuprofen [From Motrin] Allergy Itching Verified 03/11/20 12:29 Penicillins Allergy Unknown Verified 03/11/20 12:29 Childhood Laboratory Results WBC 14.9 k/uL (3.8-10.6) H 03/01/20 10:27 RBC 4.86 m/uL (4.30-5.90) 03/01/20 10:27 Hgb 15.2 gm/dL (13.0-17.5) 03/01/20 10:27 Hct 46.5 % (39.0-53.0) 03/01/20 10:27 MCV 95.6 fL (80.0-100.0) 03/01/20 10: MCH 31.4 pg (25.0-35.0) 03/01/20 10: MCHC 32.8 g/dL (31.0-37.0) 03/01/20 10: RDW 12.2 % (11.5-15.5) 03/01/20 10:27 Plt Count 358 k/uL (150-450) 03/01/20 10:27 Neutrophils % 76 % 03/01/20 10:27 Lymphocytes % 14 % 03/01/20 10:27 Monocytes % 4 % 03/01/20 10:27 Eosinophils % 4 % 03/01/20 10:27 Basophils % 1 % 03/01/20 10:27 Neutrophils # 11.4 k/uL (1.3-7.7) H 03/01/20 10:27 Lymphocytes # 2.1 k/uL (1.0-4.8) 03/01/20 10:27 Monocytes # 0.6 k/uL (0-1.0) 03/01/20 10:27 Eosinophils # 0.6 k/uL (0-0.7) 03/01/20 10:27 Basophils # 0.2 k/uL (0-0.2) 03/01/20 10:27 Sodium 137 mmol/L (137-145) 03/01/20 10:27 Potassium 4.4 mmol/L (3.5-5.1) 03/01/20 10:27 Chloride 105 mmol/L (98-107) 03/01/20 10:27 Carbon Dioxide 26 mmol/L (22-30) 03/01/20 10:27 Anion Gap 6 mmol/L 03/01/20 10:27 BUN 14 mg/dL (9-20) 03/01/20 10:27 Creatinine 1.00 mg/dL (0.66-1.25) 03/01/20 10:27 Est GFR (CKD-EPI)AfAm >90 (>60 ml/min/1.73 sqM) 03/01/20 10:27 Est GFR (CKD-EPI)NonAf >90 (>60 ml/min/1.73 sqM) 03/01/20 10:27 Glucose 96 mg/dL (74-99) 03/01/20 10:[address] Glu mg/dL 94 03/01/20 10:27 Hemoglobin A1c 4.9 % (4.0-6.0) 03/01/20 10:27 Calcium 9.4 mg/dL (8.4-10.2) 03/01/20 10:27 Total Bilirubin 0.9 mg/dL (0.2-1.3) 03/01/20 10:27 Conjugated Bilirubin 0.0 mg/dL (0.0-0.3) 03/01/20 10:27 Unconjugated Bilirubin 0.7 mg/dL (0.0-1.1) 03/01/20 10:27 Delta Bilirubin 0.2 mg/dL (0.0-0.2) 03/01/20 10:27 AST 31 U/L (17-59) 03/01/20 10:27 ALT 31 U/L (4-49) 03/01/20 10:27 Alkaline Phosphatase 69 U/L (38-126) 03/01/20 10:27 Total Protein 7.3 g/dL (6.3-8.2) 03/01/20 10:27 Albumin 4.3 g/dL (3.5-5.0) 03/01/20 10:27 Triglycerides 290 mg/dL (<150) H 03/01/20 10:27 Cholesterol 188 mg/dL (<200) 03/01/20 10:27 LDL Cholesterol, Calc 93 mg/dL (0-99) 03/01/20 10:27 HDL Cholesterol 37 mg/dL (40-60) L 03/01/20 10:27 TSH 0.468 mIU/L (0.465-4.680) 03/01/20 10:27 Vital Signs Temp 98 F 03/15/20 06:32 Pulse 80 03/15/20 06:32 Resp 16 03/15/20 06:32 BP 119/63 03/15/20 06:32 Pulse Ox 94 L 03/14/20 06:43 Patient Condition at Discharge: Stable Plan - Discharge Summary New Discharge Prescriptions: New busPIRone HCl [Buspar] 30 mg PO BID 30 Days tab DULoxetine HCL [Cymbalta] 60 mg PO BID 30 Days capsule. traZODone HCL [Desyrel] 150 mg PO HS 30 Days tab Valsartan [Diovan] 80 mg PO DAILY 30 Days tab Ziprasidone [Geodon] 80 mg PO 0800,1800 30 Days cap [place] Carbonate 150 mg PO BID 30 Days cap amLODIPine [Norvasc] 10 mg PO DAILY 30 Days tab Finasteride [Proscar] 5 mg PO DAILY 30 Days tab Acetaminophen Tab [Tylenol] 650 mg PO Q6HR PRN 30 Days tab PRN Reason: Pain/Discomfort buPROPion XL [Wellbutrin XL] 300 mg PO DAILY 30 Days tab.er.24h Changed Nicotine Polacrilex [Nicorette] 2 mg BUCCAL Q4HR PRN 30 Days gum PRN Reason: Nicotine Cravings Discontinued LORazepam [Ativan] 0.5 mg PO TID 30 Days #90 tab busPIRone HCl [Buspar] 10 mg PO TID 30 Days tab traZODone HCL [Desyrel] 25 mg PO HS 30 Days tab Valsartan [Diovan] 80 mg PO DAILY 30 Days tab Paliperidone [Invega] 3 mg PO HS #3 tab.er.24 amLODIPine [Norvasc] 10 mg PO DAILY 30 Days tab Zinc Sulfate [Orazinc] 220 mg PO DAILY 30 Days cap Finasteride [Proscar] 5 mg PO DAILY 30 Days tab Acetaminophen Tab [Tylenol] 650 mg PO Q4HR PRN tab PRN Reason: Mild Pain/Discomfort Sertraline [Zoloft] 150 mg PO DAILY 30 Days tab Paliperidone IM [Invega Sustenna] 156 mg IM ONCE #1 syr Discharge Medication List Acetaminophen Tab [Tylenol] 650 mg PO Q6HR PRN 30 Days tab 03/15/20 [Rx] DULoxetine HCL [Cymbalta] 60 mg PO BID 30 Days jerrell. 03/15/20 [Rx] Finasteride [Proscar] 5 mg PO DAILY 30 Days tab 03/15/20 [Rx] [place] Carbonate 150 mg PO BID 30 Days cap 03/15/20 [Rx] Nicotine Polacrilex [Nicorette] 2 mg BUCCAL Q4HR PRN 30 Days gum 03/15/20 [Rx] Valsartan [Diovan] 80 mg PO DAILY 30 Days tab 03/15/20 [Rx] Ziprasidone [Geodon] 80 mg PO 0800,1800 30 Days cap 03/15/20 [Rx] amLODIPine [Norvasc] 10 mg PO DAILY 30 Days tab 03/15/20 [Rx] buPROPion XL [Wellbutrin XL] 300 mg PO DAILY 30 Days tab.er.24h 03/15/20 [Rx] busPIRone HCl [Buspar] 30 mg PO BID 30 Days tab 03/15/20 [Rx] traZODone HCL [Desyrel] 150 mg PO HS 30 Days tab 03/15/20 [Rx] Follow up Appointment(s)/Referral(s): [facility] [Outside] - 03/16/20 1:00 pm (03-16-20 @ 1:00 with Bakari Chris by phone 03-20-20 @ 11:30 with GOOD Crockett at [place] office) None,Stated [Primary Care Provider] - 1-2 days Patient Instructions/Handouts: How to Stop Smoking (DC) Activity/Diet/Wound Care/Special Instructions: Activity and diet as tolerated. Avoid the use of street drugs and alcohol. Take all medications as prescribed. When you are in need of refills on your medications please contact your medical provider and/or outpatient psychiatrist to have this done. Please go to scheduled outpatient appointment for aftercare treatment. If symptoms return or become worse, call the crisis line at and/or go to the nearest emergency room for evaluation. Discharge Disposition: OTHER INSTITUTION NOT DEFINED
[2020-03-15 11:56] VITALS: TEMP 96.7
[2020-03-16] MEDS ORDERED: ZIPRASIDONE 80 MG CAP PO SCH (09:00)
== END 2020-03-15 14:02 | disposition home or self-care (01) | DRG 885 ==
LOC: EC 23:42 → 3MHU 02-29 03:38
PROVIDERS: ADMIT Psychiatry & Neurology Psychiatry; ATTEND Psychiatry & Neurology Psychiatry
DX: F25.1 Schizoaffective disorder, depressive type (principal); R45.851 Suicidal ideations; F17.200 Nicotine dependence, unspecified, uncomplicated; F41.9 Anxiety disorder, unspecified; G47.00 Insomnia, unspecified; Z87.820 Personal history of traumatic brain injury; Z79.899 Other long term (current) drug therapy; N40.0 Benign prostatic hyperplasia without lower urinary tract symptoms; Z88.6 Allergy status to analgesic agent; Z88.0 Allergy status to penicillin; Z88.8 Allergy status to other drugs, medicaments and biological substances; I10 Essential (primary) hypertension
CPT/HCPCS: 80053; 80061; 82075; 82248; 83036; 84443; 85025; 90686; 93005; 99285

== ENCOUNTER 2022-04-07 14:19 | Inpatient (IN) | payer MEDICARE, MEDICAID ==
[2022-04-07] MEDS ORDERED: MAGNESIUM HYDROXIDE 2,400 MG/10 ML CUP PO PRN (14:21)
[2022-04-07] MEDS ORDERED: OLANZapine 10 MG VIAL IM PRN (14:28)
[2022-04-07] MEDS ORDERED: OLANZapine 5 MG TAB PO PRN (14:28)
[2022-04-07] MEDS ORDERED: LORazepam 2 MG/ML INJ IM PRN (14:29)
[2022-04-07] MEDS: busPIRone HCl 10 MG TAB PO SCH (20:07)
[2022-04-07] MEDS: traZODone HCL 50 MG TAB PO SCH (20:07)
[2022-04-07] MEDS: LORazepam 1 MG TAB PO PRN (20:07)
[2022-04-07] MEDS: ACETAMINOPHEN TAB 325 MG TAB PO PRN (20:07)
[2022-04-07] MEDS ORDERED: FINASTERIDE 5 MG TAB PO SCH (21:00)
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
[2022-04-08] MEDS: NICOTINE GUM (POLACRILEX) 2 MG GUM BUCCAL PRN ×5 (06:04→20:04)
[2022-04-08] MEDS: amLODIPine 10 MG TAB PO SCH (08:22)
[2022-04-08] MEDS: busPIRone HCl 10 MG TAB PO SCH ×2 (08:22→20:01)
[2022-04-08] MEDS: LORazepam 1 MG TAB PO PRN (08:23)
[2022-04-08] MEDS: hydroCHLOROthiazide 12.5 MG CAP PO SCH (08:24)
[2022-04-08] MEDS: VALSARTAN 80 MG TAB PO SCH (08:24)
[2022-04-08] MEDS: FINASTERIDE 5 MG TAB PO SCH (08:51)
[2022-04-08] MEDS ORDERED: buPROPion XL 300 MG TAB.ER.24H PO SCH (09:00)
[2022-04-08] MEDS ORDERED: OLANZapine 5 MG TAB PO SCH ×2 (09:00→21:00)
[2022-04-08] MEDS ORDERED: clonazePAM 0.5 MG TAB PO STA (09:53)
--- NOTE | 2022-04-08 11:04 | P.HP ---
Psychiatric H&P - . H&P Date: 04/08/22 History & Physical: Allergies Allergy/AdvReac Type Severity Reaction Status Date / Time diphenhydramine Allergy Rash/Hives Verified 03/11/20 12:29 [From Benadryl] egg Allergy Nausea & Verified 04/07/22 21:17 Vomiting ibuprofen [From Motrin] Allergy Itching Verified 03/11/20 12:29 Penicillins Allergy Unknown Verified 03/11/20 12:29 Childhood Vital Signs Temp 98.5 F 04/08/22 06:29 Pulse 85 04/08/22 10:07 Resp 16 04/08/22 06:29 BP 141/86 04/08/22 10:07 Pulse Ox 92 L 04/08/22 06:29 FiO2 Intake & Output 04/07/22 04/08/22 04/08/22 18:59 06:59 18:59 Weight 81.647 kg 93.922 kg Laboratory Last Values Estimated Ave Glu mg/dL 107 04/08/22 06:57 Hemoglobin A1c 5.4 % (0.0-6.0) 04/08/22 06:57 TSH 1.360 mIU/L (0.465-4.680) 04/08/22 06:57 04/08/22 11:03 IDENTIFYING DATA: Patient is a single, on SSI, 42-year-old male with significant history of schizoaffective disorder and anxiety who presented to Hospital from [facility] for suicidal ideation and worsening auditory hallucinations. HPI: Patient presented to the hospital on 04/07/2022, transferred from [facility] under petition and certification for psychiatric admission. The patient reports that for the past month, he has been feeling extremely depressed and has been waking up with panic and anxiety. He reports that he has had a difficult time interacting with others and that he has been more sensitive to external stimuli such as loud noises. He does endorse significant symptoms of depression including anhedonia, low energy, poor self-esteem, crying episodes, decreased hygiene and grooming, and suicidal ideation. The patient states that "If my symptoms don't get better in one month I was going to jump off a bridge." He does report one prior attempt at suicide in 2016 by cutting himself. In regards to other mood symptoms, the patient is denying any periods of excessive energy, grandiosity, or mood lability. The patient does endorse significant psychotic symptoms. He states that he is experiencing auditory hallucinations as well as visual hallucinations. He reports that he sees shadow people. He does endorse ideas of reference and therefore he tries to avoid being around televisions that are on. He reports that he first began experiencing auditory hallucinations in 2000 but they became more debilitating in 2013. The patient has been managing his psychiatric symptoms with Geodon, BuSpar, Wellbutrin, and trazodone however he felt that the Geodon had "run its course." He is agreeable to signing himself in voluntarily for psychiatric admission and medication adjustments. PAST PSYCHIATRIC HISTORY: Patient states that he has been previously diagnosed with . schizoaffective disorder, anxiety disorder, and a traumatic brain injury. The patient recalls being previous prescribed Invega, Geodon, Latuda, BuSpar, Wellbutrin, Ativan, Xanax, Cymbalta, and lithium. His current home medication regimen includes Geodon, trazodone, BuSpar, and Wellbutrin. The patient reports that he has had "a half dozen inpatient admissions." He was last admitted onto our psychiatric unit in 2019 however states that he was admitted in another psychiatric unit after that admission prior to this admission but cannot recall when and where. The patient is currently open with [facility]. He does report one nitesh or attempt at suicide by cutting himself 2016. PMH: Past Medical History: No Reported History Additional Past Medical History / Comment(s): CHI with skull fx- R shoulder pains History of Any Multi-Drug Resistant Organisms: None Reported Past Surgical History: Hernia Repair Past Psychological History: Anxiety, Bipolar, Schizophrenia Smoking Status: Never smoker Past Alcohol Use History: Rare Past Drug Use History: None Reported ALLERGIES: Diphenhydramine, egg, ibuprofen, penicillin CHEMICAL DEPENDENCY HISTORY: The patient denies any tobacco, alcohol, marijuana, or illicit drug use. He does however report that he uses a recreational form of nicotine. FAMILY PSYCHIATRIC/SUBSTANCE USE HISTORY: The patient does not report any family psychiatric history. SOCIAL HISTORY: Patient was born and raised in [place]. He is single, never , and has no children. He graduated from [employer]. He currently receives Social Security. 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 He denies any legal issues. He does report that his hobbies and interests include drawing weinberg. MENTAL STATUS EXAM: General Appearance: Patient appears to be stated age is alert, directable, and attempts to cooperate. Patient appears to have slightly disheveled hygiene and grooming. Behavior: Patient is seated without any agitated behavior. Eye contact is appropriate. Speech: Patient's speech is slightly rapid but fluent and interruptible. Mood/Affect: Patient reports their mood is depressed, affect is anxious and nervous. Suicidality/Homicidality: Patient denies any homicidal ideation however endorses suicidal ideation. Perceptions: Patient endorses both auditory and visual hallucinations Though content/process: He does admit to ideas of reference. No other delusional thought content is endorsed. Memory and concentration: AOX3, grossly intact for the purposes of this session. Can spell "WORLD" backwards Judgment and insight: Fair STRENGTHS/WEAKNESSES: strength is that patient is resilient and has fair insight. Weakness is that patient has severe mental illness and history of traumatic brain injury INTELLECT: average IMPRESSIONS: Schizoaffective disorder, depressed type Generalized anxiety disorder History of traumatic brain injury Nicotine dependence PLAN: -Patient is admitted under voluntary status to [facility] for stabilization of psychiatric symptoms and safety. Patient signed adult voluntary form and medication consent and is placed in patient's chart. -Medications : Decrease Wellbutrin to 150 mg by mouth daily due to concern for elevated anxiety and insomnia Continue BuSpar 30 mg by mouth twice a day for anxiety Start Klonopin 0.5 mg by mouth twice a day for anxiety Increase Zyprexa to 2.5 mg by mouth every morning and 5 mg by mouth daily at bedtime for psychosis Continue trazodone 150 mg by mouth at bedtime for insomnia -Ativan and Zyprexa PRN for agitation/aggression -Patient was counselled on substance abuse and desired to cut back on use -Patient was informed of the risks, benefits and side effects of the medication and patient verbally consented to taking the medications. Patient signed med consent form and was placed in chart. -Internal Medicine consult to perform medical evaluation and physical. -SW on board for discharge planning. Encourage patient to participate in groups to work on coping skills. 04/08/22 11:03 04/08/22 11:04
[2022-04-08] MEDS: traZODone HCL 50 MG TAB PO SCH (20:01)
[2022-04-08] MEDS: clonazePAM 0.5 MG TAB PO SCH (20:01)
[2022-04-08] MEDS ORDERED: FINASTERIDE 5 MG TAB PO SCH (21:00)
[2022-04-09] MEDS: NICOTINE GUM (POLACRILEX) 2 MG GUM BUCCAL PRN ×6 (03:28→22:20)
[2022-04-09] MEDS: MAG HYDROX/AL HYDROX/SIMETH 355 ML BOTTLE PO PRN ×2 (05:59→09:38)
[2022-04-09] MEDS: busPIRone HCl 10 MG TAB PO SCH ×2 (07:41→20:05)
[2022-04-09] MEDS: amLODIPine 10 MG TAB PO SCH (07:42)
[2022-04-09] MEDS: VALSARTAN 80 MG TAB PO SCH (07:42)
[2022-04-09] MEDS: clonazePAM 0.5 MG TAB PO SCH ×2 (07:42→20:04)
[2022-04-09] MEDS: OLANZapine 2.5 MG TAB PO SCH (07:42)
[2022-04-09] MEDS: buPROPion XL 150 MG TAB.ER.24H PO SCH (07:42)
[2022-04-09] MEDS: hydroCHLOROthiazide 12.5 MG CAP PO SCH (07:42)
[2022-04-09] MEDS: FINASTERIDE 5 MG TAB PO SCH (07:42)
[2022-04-09] MEDS: ACETAMINOPHEN TAB 325 MG TAB PO PRN ×2 (08:49→20:07)
--- NOTE | 2022-04-09 10:20 | P.PN ---
Progress Note - Text Progress Note Date: 04/09/22 Interval History: Patient was seen resting in his bed and was directable and agreeable to speak with comic writer in the office. Currently, the patient reports that he continues to have suicidal ideation but they are fleeting. He reports no homicidal ideation. He states that his anxiety and mood are overall much better compared to when he first came in. He does however endorse that he continues to experience auditory hallucinations at bedtime. He reports that they are frequent throughout the day however are less severe than before. He believes he is trending in the right direction. He has been adherent with his medication is not endorsing any significant side effects. He is not reporting any paranoia or other delusions. He however continues to stay away from the television as he is concerned that he would have worsening psychotic symptoms near it. He reports no issues regarding his sleep or his appetite. He denies any issues regarding his general medical health. Mental Status Exam: General Appearance: Patient appears to be stated age is alert, directable, and cooperative. Behavior: Patient is calmly seated without any agitated behavior. Speech: Patient's speech is fluent and nonpressured. Mood/Affect: Mood is improving mildly, affect is congruent and constricted. Suicidality/Homicidality: Patient reports fleeting suicidal ideation however denies any homicidal ideation. Perceptions: Patient denies any visual hallucinations but endorses auditory hallucinations. Though content/process: He continues to endorse ideas of reference however is less bothered by any delusions today. He is linear and logical in short conversation today. Memory and concentration: AOX3, grossly intact for the purposes of this session Judgment and insight: Improving mildly Vital Signs Temp 98.5 F 04/08/22 06:29 Pulse 85 04/08/22 10:07 Resp 16 04/08/22 06:29 BP 141/86 04/08/22 10:07 Pulse Ox 92 L 04/08/22 06:29 FiO2 Laboratory Results - Last 24 Hours 04/08/22 06:[address] Glu mg/dL 107 Hemoglobin A1c 5.4 Assessment Schizoaffective disorder, depressed type Generalized anxiety disorder History of traumatic brain injury Nicotine dependence Plan: -Patient continues to meet criteria for inpatient psychiatric admission for symptom stabilization and safety. Patient has signed adult voluntary form and medication consent and was placed in patient's chart. -Medications: Wellbutrin 150 mg by mouth daily for depression BuSpar 30 g by mouth twice a day for anxiety Klonopin 0.5 mg by mouth twice a day for anxiety Increase Zyprexa to 2.5 mg by mouth every morning and 10 mg by mouth daily at bedtime for psychosis trazodone 100 mg by mouth at bedtime for insomnia -When necessary Ativan and Zyprexa for agitation/aggression. -NRT - Nicorette gum -SW on board for discharge planning. Encouraged the patient to participate in milieu.
[2022-04-09] MEDS: LORazepam 1 MG TAB PO PRN (14:27)
[2022-04-09] MEDS ORDERED: OLANZapine 10 MG TAB PO SCH (21:00)
[2022-04-09] MEDS: traZODone HCL 50 MG TAB PO SCH (23:05)
[2022-04-10] MEDS: ACETAMINOPHEN TAB 325 MG TAB PO PRN ×2 (05:37→16:33)
[2022-04-10] MEDS: NICOTINE GUM (POLACRILEX) 2 MG GUM BUCCAL PRN ×7 (05:37→22:55)
[2022-04-10 07:44] VITALS: RESP 18; TEMP 97.6
[2022-04-10] MEDS: FINASTERIDE 5 MG TAB PO SCH (07:44)
[2022-04-10] MEDS: VALSARTAN 80 MG TAB PO SCH (07:44)
[2022-04-10] MEDS: buPROPion XL 150 MG TAB.ER.24H PO SCH (07:44)
[2022-04-10] MEDS: amLODIPine 10 MG TAB PO SCH (07:44)
[2022-04-10] MEDS: OLANZapine 2.5 MG TAB PO SCH (07:45)
[2022-04-10] MEDS: hydroCHLOROthiazide 12.5 MG CAP PO SCH (07:45)
[2022-04-10] MEDS: busPIRone HCl 10 MG TAB PO SCH ×2 (07:45→20:08)
[2022-04-10] MEDS: clonazePAM 0.5 MG TAB PO SCH ×2 (07:46→20:09)
[2022-04-10] MEDS ORDERED: INFLUENZA VACC (6 MOS-64 YRS) 60 MCG/0.5 ML SYRINGE IM ONE (09:00)
[2022-04-10] MEDS: MAG HYDROX/AL HYDROX/SIMETH 355 ML BOTTLE PO PRN ×2 (10:37→21:34)
--- NOTE | 2022-04-10 11:08 | P.PN ---
Progress Note - Text Progress Note Date: 04/10/22 Interval History: Patient was seen resting in his bed and was directable and agreeable to speak with commercial loan underwriter in the office. Currently, the patient reports that she is feeling better. He reports that he required PRN zyprexa yesterday because he felt overwhelmed by auditory hallucinations. Despite this, he reports that his hallucinations have decreased in severity overall. He is not endorsing any suicidal or homicidal ideation, intention, and/or plan. He is not reporting any visual hallucinations or paranoia. He denies any delusions today. He reports that his anxiety has significantly improved. He is tolerating his medications well and is not endorsing any significant side effects. He reports no medical issues or concerns and denies any chest pain, insurance of breath, or palpitations. Mental Status Exam: General Appearance: Patient appears to be stated age is alert, directable, and cooperative. Behavior: Patient is calmly seated without any agitated behavior. Speech: Patient's speech is fluent and nonpressured. Mood/Affect: Mood is improving mildly, affect is congruent and constricted. Suicidality/Homicidality: Patient reports no suicidal or homicidal ideation. Perceptions: Auditory hallucinations are present however denies any visual hallucinations. Thought process/content: Patient patient is linear and logical in short conversation. No overt delusional thought content. Memory and concentration: AOX3, grossly intact for the purposes of this session Judgment and insight: Improving mildly Vital Signs Temp 97.6 F 04/10/22 07:42 Pulse 65 04/10/22 07:42 Resp 18 04/10/22 07:42 BP 128/84 04/10/22 07:42 Pulse Ox 96 04/10/22 07:42 FiO2 Assessment Schizoaffective disorder, depressed type Generalized anxiety disorder History of traumatic brain injury Nicotine dependence Plan: -Patient continues to meet criteria for inpatient psychiatric admission for symptom stabilization and safety. Patient has signed adult voluntary form and medication consent and was placed in patient's chart. -Medications: Wellbutrin 150 mg by mouth daily for depression BuSpar 30 g by mouth twice a day for anxiety Klonopin 0.5 mg by mouth twice a day for anxiety Increase Zyprexa to 5 mg by mouth every morning and 15 mg by mouth daily at bedtime for psychosis trazodone 100 mg by mouth at bedtime for insomnia -When necessary Ativan and Zyprexa for agitation/aggression. -NRT - Nicorette gum -SW on board for discharge planning. Encouraged the patient to participate in milieu.
[2022-04-10] MEDS: LORazepam 1 MG TAB PO PRN (14:55)
[2022-04-10] MEDS ORDERED: OLANZapine 7.5 MG TAB PO SCH (21:00)
[2022-04-10] MEDS: traZODone HCL 50 MG TAB PO SCH (22:54)
[2022-04-11] MEDS: NICOTINE GUM (POLACRILEX) 2 MG GUM BUCCAL PRN ×3 (06:36→13:23)
[2022-04-11] MEDS: ACETAMINOPHEN TAB 325 MG TAB PO PRN ×2 (06:36→13:23)
[2022-04-11 06:46] VITALS: BP 129/77; PULSE 75
[2022-04-11] MEDS: amLODIPine 10 MG TAB PO SCH (08:00)
[2022-04-11] MEDS: buPROPion XL 150 MG TAB.ER.24H PO SCH (08:00)
[2022-04-11] MEDS: clonazePAM 0.5 MG TAB PO SCH (08:00)
[2022-04-11] MEDS: busPIRone HCl 10 MG TAB PO SCH (08:00)
[2022-04-11] MEDS: hydroCHLOROthiazide 12.5 MG CAP PO SCH (08:01)
[2022-04-11] MEDS: FINASTERIDE 5 MG TAB PO SCH (08:01)
[2022-04-11] MEDS: VALSARTAN 80 MG TAB PO SCH (08:01)
[2022-04-11] MEDS: LORazepam 1 MG TAB PO PRN (08:50)
[2022-04-11] MEDS ORDERED: OLANZapine 5 MG TAB PO SCH (09:00)
--- NOTE | 2022-04-11 11:31 | P.DS ---
Providers Date of admission: 04/07/22 19:30 Expected date of discharge: 04/11/22 Attending physician: Abrahan Prince MD Consults: 04/07/22 14:21 Consult Physician Routine Consulting Provider: Quentin Tracey Consult Reason/Comments: H&P Do you want consulting provider notified?: Yes Primary care physician: Stated None - Discharge Diagnosis(es) (1) Schizoaffective disorder, depressive type Current Visit: Yes Status: Acute Priority: High (2) Generalized anxiety disorder Current Visit: Yes Status: Chronic Priority: Medium (3) Nicotine dependence Current Visit: Yes Status: Chronic Priority: Medium (4) History of traumatic brain injury Current Visit: Yes Status: Acute Priority: Low Hospital Course: Admission HPI: Patient is a single, on SSI, 42-year-old male with significant history of schizoaffective disorder and anxiety who presented to Hospital from [facility] for suicidal ideation and worsening auditory hallucinations. Patient presented to the hospital on 04/07/2022, transferred from [facility] under petition and certification for psychiatric admission. The patient reports that for the past month, he has been feeling extremely depressed and has been waking up with panic and anxiety. He reports that he has had a difficult time interacting with others and that he has been more sensitive to external stimuli such as loud noises. He does endorse significant symptoms of depression including anhedonia, low energy, poor self-esteem, crying episodes, decreased hygiene and grooming, and suicidal ideation. The patient states that "If my symptoms don't get better in one month I was going to jump off a bridge." He does report one prior attempt at suicide in 2016 by cutting himself. In regards to other mood symptoms, the patient is denying any periods of excessive energy, grandiosity, or mood lability. The patient does endorse significant psychotic symptoms. He states that he is experiencing auditory hallucinations as well as visual hallucinations. He reports that he sees shadow people. He does endorse ideas of reference and therefore he tries to avoid being around televisions that are on. He reports t hat he first began experiencing auditory hallucinations in 2000 but they became more debilitating in 2013. The patient has been managing his psychiatric symptoms with Geodon, BuSpar, Wellbutrin, and trazodone however he felt that the Geodon had "run its course." He is agreeable to signing himself in voluntarily for psychiatric admission and medication adjustments. Patient states that he has been previously diagnosed with . schizoaffective disorder, anxiety disorder, and a traumatic brain injury. The patient recalls being previous prescribed Invega, Geodon, Latuda, BuSpar, Wellbutrin, Ativan, Xanax, Cymbalta, and lithium. His current home medication regimen includes Geodon, trazodone, BuSpar, and Wellbutrin. The patient reports that he has had "a half dozen inpatient admissions." He was last admitted onto our psychiatric unit in 2019 however states that he was admitted in another psychiatric unit after that admission prior to this admission but cannot recall when and where. The patient is currently open with [facility]. He does report one prior attempt at suicide by cutting himself 2015. Hospital course: Upon admission to the unit patient was initially presenting as somewhat dis heveled and is endorsing depression, anxiety, and worsening hallucinations. Patient was however directable and agreeable to commence treatment. Patient got along well with other patients on the unit and followed unit protocol. Patient was compliant with the medications and denied any side effects throughout hospital course. Patient was started on his home medications of BuSpar and trazodone. Zyprexa was increased. His Wellbutrin was decreased due to concern for elevated anxiety and insomnia. The patient was also started on Klonopin for elevated anxiety and panic. Patient spoke of his stressors and engaged in therapy both group and individual. Patient was also seen by medical team for history and physical exam. Over the course of the hospitalization, the patient displayed significant improvement regresses target symptoms of psychosis and anxiety. His mood overall improved. He became more future and goal oriented. He attended groups of high-level participation. On the day of discharge, the patient is not reporting any suicidal or homicidal ideation, intention, and/or plan. He is not reporting any visual hallucinations and states that his auditory hallucinations have decreased in severity. He reports that they're much more tolerable. He reports an overall improved mood. He denies any suicidal or homicidal ideation, intention, and/or plan. He denies any access to firearms or other weapons. The patient has been adherent with his medication and is not endorsing any significant side effects at this time. The patient was counseled length on importance of medication adherence appropriate outpatient follow-up. He does not have a significant history of substance abuse however was counseled greatly from obtaining from all substances including tobacco, alcohol, marijuana, or illicit drug use. As the patient no longer had criteria for continued inpatient psychiatric hospitalization, he was subsequently discharged. Mental status exam: General Appearance: Patient appears to be stated age is alert, pleasant, and cooperative. Patient is in no acute distress and has fair hygiene and grooming Behavior: Patient is calmly seated without any agitated behavior. Speech: Patient's speech is fluent and nonpressured. Mood/Affect: Patient reports their mood is "much better", affect is congruent and euthymic to bright. Suicidality/Homicidality: Patient denies having any suicidal or homicidal ideation intent or plan. Perceptions: Patient denies any auditory or visual hallucinations. Though content/process: There is no evidence of any delusional thought content and thought process is linear and goal-directed. Future and goal oriented. Memory and concentration: AOX3, grossly intact for the purposes of this session. Can spell "WORLD" backwards correctly. Judgment and insight: Improved with guarded prognosis Impression: Schizoaffective disorder, depressed type Generalized anxiety disorder History of traumatic brain injury Nicotine dependence Plan: -Continue with discharge today as patient has improved and stabilized psychiatrically and is not currently an imminent threat to himself and/or others. Patient will remain at chronically elevated risk due to the severity and chronicity of his mental illness. -Continue medications: Klonopin 0.5 mg by mouth twice a day when necessary for anxiety for 7 days with one refill Trazodone 150 mg by mouth at bedtime for insomnia Wellbutrin XL 150 mg by mouth daily for depression BuSpar 30 mg by mouth twice a day for anxiety Zyprexa 5 mg by mouth every morning and 15 mg by mouth daily at bedtime for ps ychosis -Patient was counseled on the need for medication compliance and appropriate follow-up at mental health and also primary care for medical issues. Patient verbalized understanding and agreed. -Social work to arrange for and conduct family meeting to ensure safety upon discharge and answer any questions/concerns. Social work also to arrange for patients follow up appointments with [facility] for psychiatric care along with follow up with primary care provider. -Patient counseled on abstaining from recreational drugs and marijuana and alcohol. Was informed/educated on the adverse effects on their physical and mental health. Patient verbally agreed and understood. -Patient was instructed to return to the hospital or seek immediate medical care if their psychiatric or medical symptoms do worsen or reoccur. -Psychoeducation and supportive therapy provided to patient. Risks and benefits of pharmacological treatment versus the risks and benefits of nontreatment weight and discussed. Informed consent discussion held. Common side effects of psychotropics discussed such as, but not limited to headache, GI disturbance, sexual dysfunction, movement disorders, sedation, and orthostatic hypotension. Life threatening and blackbox warnings of prescribed medications also discussed. Potential risks of operating a vehicle or heavy machinery discussed with patient at length. Advised on importance of compliance and a reliable and responsible manner. Patient advised to review FDA consumer labeling of all medications prior to taking. Patient verbalized understanding of potential risks, and agrees with current treatment plan. Patient advised to medically contact physician/emergency personnel if any acute changes in condition occur. Vital Signs Temp 97.6 F 04/11/22 06:45 Pulse 75 04/11/22 06:45 Resp 18 04/11/22 06:45 BP 129/77 04/11/22 06:45 Pulse Ox 96 04/11/22 06:45 FiO2 Laboratory Results Estimated Ave Glu mg/dL 107 04/08/22 06:57 Hemoglobin A1c 5.4 % (0.0-6.0) 04/08/22 06:57 TSH 1.360 mIU/L (0.465-4.680) 04/08/22 06:57 Allergies Allergy/AdvReac Type Severity Reaction Status Date / Time diphenhydramine Allergy Rash/Hives Verified 03/11/20 12:29 [From Benadryl] egg Allergy Nausea & Verified 04/07/22 21:17 Vomiting ibuprofen [From Motrin] Allergy Itching Verified 03/11/20 12:29 Penicillins Allergy Unknown Verified 03/11/20 12:29 Childhood Patient Condition at Discharge: Stable Plan - Discharge Summary Discharge Rx Participant: No New Discharge Prescriptions: New traZODone HCL [Desyrel] 150 mg PO HS 30 Days tab Nicotine Gum (Polacrilex) [Nicorette] 2 mg BUCCAL Q2HR PRN 15 Days pieceofgum PRN Reason: Nicotine Cravings buPROPion XL [Wellbutrin XL] 150 mg PO DAILY 30 Days tab busPIRone HCl [Buspar] 30 mg PO BID 30 Days tab clonazePAM [KlonoPIN] 0.5 mg PO BID PRN 7 Days #14 tab PRN Reason: Anxiety OLANZapine [ZyPREXA] 5 mg PO DAILY@0900 30 Days tab OLANZapine [ZyPREXA] 15 mg PO HS 30 Days tab Continue amLODIPine [Norvasc] 10 mg PO DAILY 30 Days tab Finasteride [Proscar] 5 mg PO DAILY 30 Days tab hydroCHLOROthiazide 12.5 mg PO DAILY Valsartan [Diovan] 160 mg PO DAILY Discontinued busPIRone HCl [Buspar] 30 mg PO BID 30 Days tab traZODone HCL [Desyrel] 150 mg PO HS 30 Days tab Acetaminophen Tab [Tylenol] 650 mg PO Q6HR PRN 30 Days tab PRN Reason: Pain/Discomfort buPROPion XL [Wellbutrin XL] 300 mg PO DAILY 30 Days tab.er.24h Nicotine Gum (Polacrilex) [Nicorette] 2 mg BUCCAL Q4HR PRN 30 Days gum PRN Reason: Nicotine Cravings Discharge Medication List Finasteride [Proscar] 5 mg PO DAILY 30 Days tab 03/15/20 [Rx] amLODIPine [Norvasc] 10 mg PO DAILY 30 Days tab 03/15/20 [Rx] Valsartan [Diovan] 160 mg PO DAILY 04/07/22 [History] hydroCHLOROthiazide 12.5 mg PO DAILY 04/07/22 [History] Nicotine Gum (Polacrilex) [Nicorette] 2 mg BUCCAL Q2HR PRN 15 Days pieceofgum 04/11/22 [Rx] OLANZapine [ZyPREXA] 5 mg PO DAILY@0900 30 Days tab 04/11/22 [Rx] OLANZapine [ZyPREXA] 15 mg PO HS 30 Days tab 04/11/22 [Rx] buPROPion XL [Wellbutrin XL] 150 mg PO DAILY 30 Days tab 04/11/22 [Rx] busPIRone HCl [Buspar] 30 mg PO BID 30 Days tab 04/11/22 [Rx] clonazePAM [KlonoPIN] 0.5 mg PO BID PRN 7 Days #14 tab 04/11/22 [Rx] traZODone HCL [Desyrel] 150 mg PO HS 30 Days tab 04/11/22 [Rx] Follow up Appointment(s)/Referral(s): [facility]Other] - [address] [facility] [Outside] - 04/15/22 1:00 pm (04/15/2022 1:00PM - 2:00PM with JE STEINBERG 04/16/2022 1:30PM - 2:00PM with MECHE RADHA 04/17/2022 2:00PM - 3:00PM with ROSA HAYESIZABELLA 04/30/2022 11:00AM - 12:00PM with JONI OJEDA) Patient Instructions/Handouts: How to Stop Smoking (DC), Schizoaffective Disorder (DC) Activity/Diet/Wound Care/Special Instructions: Activity and diet as tolerated. Avoid the use of street drugs and alcohol. Take all medications as prescribed. When you are in need of refills on your medications please contact your medical provider and/or outpatient psychiatrist to have this done. Please go to scheduled outpatient appointment for aftercare treatment. If symptoms return or become worse, call the crisis line at and/or go to the nearest emergency room for evaluation Discharge Disposition: HOME SELF-CARE
[2022-04-11] MEDS: MAG HYDROX/AL HYDROX/SIMETH 355 ML BOTTLE PO PRN (13:23)
== END 2022-04-11 14:44 | disposition home or self-care (01) | DRG 885 ==
LOC: 3MHU 19:30
PROVIDERS: ADMIT Psychiatry & Neurology Psychiatry; ATTEND Psychiatry & Neurology Psychiatry
DX: F25.1 Schizoaffective disorder, depressive type (principal); R45.851 Suicidal ideations; F41.1 Generalized anxiety disorder; F17.290 Nicotine dependence, other tobacco product, uncomplicated; G47.00 Insomnia, unspecified; Z87.820 Personal history of traumatic brain injury; Z88.8 Allergy status to other drugs, medicaments and biological substances; Z88.0 Allergy status to penicillin; Z88.6 Allergy status to analgesic agent; Z91.012 Allergy to eggs; Z79.899 Other long term (current) drug therapy; Z28.311 Partially vaccinated for COVID-19
CPT/HCPCS: 83036; 84443; 90686

== ENCOUNTER 2022-12-08 10:18 | Emergency (ER) | payer MEDICARE, OTHER ==
[2022-12-08] MEDS ORDERED: RABIES IMM GLOB 300 UNIT/2 ML VIAL IM ONE (10:37)
[2022-12-08] MEDS ORDERED: RABIES VACCINE (PCEC) 2.5 UNIT KIT IM ONE (10:37)
--- NOTE | 2022-12-08 10:42 | ED ---
Animal Bite HPI - General Chief Complaint: Animal Bite Stated Complaint: Dog Bite, R Back of Knee Time Seen by Provider: 12/08/22 10:31 Source: patient, RN notes reviewed Mode of arrival: ambulatory Limitations: no limitations - History of Present Illness Initial Comments: This is a pleasant 42-year-old male who presents to the emergency department worse in the right lower leg and right calf. Patient states he was bit by what is essentially a stray dog about 10 days ago. Patient states he called his regular physician and was prescribed antibiotics by phone. Patient also had his tetanus updated at the pharmacy. However patient was doing research about rabies and is very concerned about this. Don't cannot be located. Patient states the dog appeared to be somewhat ill, there is no pallor. Her about the dog's vaccination status. Again, this don't cannot be located or found. Patient also complaining of worsening pain in the right calf area. Patient was put on antibiotics but is unsure which one. Patient denying any redness. No fever. No shortness of breath or chest pain. No headache, no fever or chills, no changes in vision or hearing, no sore throat or difficulty with speech, no neck pain, no chest pain or shortness of breath, no abdominal pain, no nausea or vomiting, no changes in urination or bowel movements, no numbness or tingling, no extremity pain, no skin rashes or lesions. Past medical, surgical, social, and family history reviewed. MD Complaint: animal bite - Related Data Home Medications Medication Instructions Recorded Confirmed Valsartan [Diovan] 160 mg PO DAILY 04/07/22 04/07/22 hydroCHLOROthiazide 12.5 mg PO DAILY 04/07/22 04/07/22 Previous Rx's Medication Instructions Recorded Finasteride [Proscar] 5 mg PO DAILY 30 Days tab 03/15/20 amLODIPine [Norvasc] 10 mg PO DAILY 30 Days tab 03/15/20 Nicotine Gum (Polacrilex) 2 mg BUCCAL Q2HR PRN 15 Days 04/11/22 [Nicorette] pieceofgum OLANZapine [ZyPREXA] 5 mg PO DAILY@0900 30 Days tab 04/11/22 OLANZapine [ZyPREXA] 15 mg PO HS 30 Days tab 04/11/22 buPROPion XL [Wellbutrin XL] 150 mg PO DAILY 30 Days tab 04/11/22 busPIRone HCl [Buspar] 30 mg PO BID 30 Days tab 04/11/22 clonazePAM [KlonoPIN] 0.5 mg PO BID PRN 7 Days #14 tab 04/11/22 traZODone HCL [Desyrel] 150 mg PO HS 30 Days tab 04/11/22 Doxycycline [Vibramycin] 100 mg PO BID 7 Days #14 capsule 12/08/22 Allergies Allergy/AdvReac Type Severity Reaction Status Date / Time diphenhydramine Allergy Rash/Hives Verified 12/08/22 10:30 [From Benadryl] egg Allergy Nausea & Verified 12/08/22 10:30 Vomiting ibuprofen [From Motrin] Allergy Itching Verified 12/08/22 10:30 Penicillins Allergy Unknown Verified 12/08/22 10:30 Childhood Review of Systems ROS Statement: Those systems with pertinent positive or pertinent negative responses have been documented in the HPI. ROS Other: All systems not noted in ROS Statement are negative. Past Medical History Past Medical History: No Reported History Additional Past Medical History / Comment(s): CHI with skull fx- R shoulder pains History of Any Multi-Drug Resistant Organisms: None Reported Past Surgical History: Hernia Repair Past Psychological History: Anxiety, Bipolar, Schizophrenia Smoking Status: Never smoker Past Alcohol Use History: Rare Past Drug Use History: None Reported - Past Family History family Family Medical History: Cancer, Coronary Artery Disease (CAD) General Exam - General Exam Comments Initial Comments: Vital signs stable, patient afebrile. Patient appears to be a bit anxious. Cranial nerves II through XII grossly intact. Alert and oriented times4 Limitations: no limitations General appearance: alert, in no apparent distress, anxious Head exam: Present: atraumatic, normocephalic, normal inspection Eye exam: Present: normal appearance, PERRL, EOMI. Absent: scleral icterus, conjunctival injection, periorbital swelling ENT exam: Present: normal exam, normal oropharynx, mucous membranes moist, normal external ear exam. Absent: mucous membranes dry Neck exam: Present: normal inspection, full ROM. Absent: tenderness, meningismus, lymphadenopathy Respiratory exam: Present: normal lung sounds bilaterally. Absent: respiratory distress, wheezes, rales, rhonchi, stridor, accessory muscle use Cardiovascular Exam: Present: regular rate, normal rhythm, normal heart sounds. Absent: systolic murmur, diastolic murmur, rubs, gallop, clicks GI/Abdominal exam: Present: soft, normal bowel sounds. Absent: distended, tenderness, guarding, rebound, rigid Extremities exam: Present: normal inspection, full ROM, normal capillary refill, calf tenderness (Right calf tenderness, equivocal Homans sign), other (Patient has a bite wound noted to the right popliteal area. Right calf tenderness. No significant erythema. No crepitus. No lymphangitis. No adenopathy). Absent: tenderness, pedal edema, joint swelling Back exam: Present: normal inspection Neurological exam: Present: alert, oriented X3, CN II-XII intact Psychiatric exam: Present: normal affect, normal mood Skin exam: Present: warm, dry, normal color. Absent: intact (Patient has a bite wound to the right popliteal area. No specific erythema. Mild bruising. No lymphangitis. No crepitus), rash Course Vital Signs 12/08/22 10:27 Temperature 98 F Pulse Rate 88 Respiratory 18 Rate Blood Pressure 107/75 O2 Sat by Pulse 96 Oximetry - Reevaluation(s) Reevaluation #1: 12/08/22 11:29 No evidence of DVT on ultrasound. Patient stable at discharge. We'll prescribe Augmentin and follow-up rabies vaccine schedule. Medical Decision Making - Medical Decision Making Was pt. sent in by a medical professional or institution? @ -no Did you speak to anyone other than the patient for history? @ -no Did you review nursing and triage notes? @ -Agree Were old charts reviewed? @ -no Differential Diagnosis? @ -Nepalese a diagnosis includes but not limited to: DVT, cellulitis, soft tissue injury from dog bite. Does not appear to be consistent with bony injury. Does not appear to be consistent with systemic infectious process. Certainly rabies is concerning given the fact the dog was essentially straying cannot be located. Also no immunization status. Note that this patient had his tetanus updated after being prescribed antibiotics and advised to go to the pharmacy by his regular doctor. He saw his regular doctor by phone only. EKG interpreted by me (3pts min.)? @ -[none] X-rays interpreted by me (1pt min.)? @ -[none] CT interpreted by me (1pt min.)? @ -[none] U/S interpreted by me (1pt. min.)? @ Independent interpretation of the venous Doppler shows no evidence of acute pathology. I did review radiology interpretation. What testing was considered but not performed? (CT, X-rays, U/S, labs)? Why? @ I did consider plain film x-rays. However there is no crepitus. No evidence of definitive infectious process. These were deferred after shared decision- making the patient. What meds were considered but not given? Why? @ -I did consider Augmentin however the patient lists a penicillin ALLERGY. Come to find out, patient lists that due to ALLERGIES and family members. Will not risk at this point since there is no definitive evidence of infectious process. We'll treat with doxycycline. I did however discuss removing this from the ALLERGY list with the patient since he himself has no ALLERGY. Did you discuss the management of the patient with other professionals? @ -The case was discussed in detail with ED attending physician. Presentation, findings, treatment plan discussed in detail. Did you reconcile home meds? @ -[none] Was smoking cessation discussed for >3mins.? @ -[none] Was critical care preformed (if so, how long)? @ -[none] Were there social determinants of health that impacted care today? How? (Homelessness, low income, unemployed, alcoholism, drug addiction, transportatio n, low edu. Level, literacy, decrease access to med. care, fci, rehab)? @ -None noted Was there de-escalation of care discussed even if they declined? (Discuss DNR or withdrawal of care, Hospice)? @ -[Discuss DNR or withdrawal of care, Hospice?] What co-morbidities impacted this encounter? (DM, HTN, Smoking, COPD, CAD, Ca ncer, CVA, Hep., AIDS, mental health diagnosis, sleep apnea, morbid obesity)? @ -None noted Was patient admitted / discharged? @ -And stable throughout course of emergency department stay. Patient discharged in stable condition Undiagnosed new problem with uncertain prognosis? @ -New diagnosis, unlikely to affect bodily function. Rabies series initiated. Drug Therapy requiring intensive monitoring for toxicity (Heparin, Nitro, Insulin, Cardizem)? @ -[none] Were any procedures done? @ -[none] Diagnosis/symptom? @ -Animal bite/dog bite, right lower leg Acute, or Chronic, or Acute on Chronic? @ -Acute Uncomplicated (without systemic symptoms) or Complicated (systemic symptoms)? @ -Uncomplicated, unlikely to affect bodily function Side effects of treatment? @ -[none] Exacerbation, Progression, or Severe Exacerbation] @ -[no] Poses a threat to life or bodily function? @ -[no] - Radiology Data Radiology results: report reviewed, image reviewed Disposition Clinical Impression: Dog bite Disposition: HOME SELF-CARE Condition: Good Instructions (If sedation given, give patient instructions): Animal Bite (ED) Additional Instructions: Elevate the leg as much as possible. Take antibiotics as directed. Return for follow-up rabies vaccine on day 3, day 7, and day 14 complete the series. Follow-up with your regular physician as directed. Return to the ER immediately if any symptoms worsen, new symptoms arise, or any other problems develop. Is patient prescribed a controlled substance at d/c from ED?: No When asked, does pt state using other controlled substances?: No If prescribed controlled substance>3 days was MAPS reviewed?: No If opioid is for acute pain is fill amount 7 days or less?: No If Rx opioid, was Start Talking consent form obtained?: No Referrals: Micah Miller MD [Primary Care Provider] - 1-2 days
[2022-12-08] MEDS ORDERED: RABIES VACC,HUMAN DIPLOID (PF) 2.5 UNIT KIT IM ONE (10:45)
--- NOTE | 2022-12-08 11:21 | US ---
EXAMINATION TYPE: US venous doppler duplex LE RT DATE OF EXAM: 12/08/2022 11:11 AM COMPARISON: NONE CLINICAL INDICATION: Male, 42 years old with history of Right lower extremity injury/animal bite; Dog bite right lower leg 10 days ago. Pain and edema right leg SIDE PERFORMED: right TECHNIQUE: The lower extremity deep venous system is examined utilizing real time linear array sonog teresa with graded compression, doppler sonography and color-flow sonography. VESSELS IMAGED: Common Femoral Vein Deep Femoral Vein Greater Saphenous Vein * Femoral Vein Popliteal Vein Small Saphenous Vein * Proximal Calf Veins (* superficial vessels) Right Leg: No evidence of deep venous thrombosis. IMPRESSION: Grayscale, color doppler, spectral doppler imaging performed of the deep veins of the lo wer extremities. There is normal flow, compressibility, vascular waveforms.
[2022-12-08 13:25] VITALS: BP 123/85; PULSE 75; RESP 16; TEMP 98.2
== END 2022-12-08 13:26 | disposition home or self-care (01) ==
LOC: EC 10:18
DX: S81.852A Open bite, left lower leg, initial encounter (principal); Z86.59 Personal history of other mental and behavioral disorders; Z91.012 Allergy to eggs; Z88.6 Allergy status to analgesic agent; Z88.0 Allergy status to penicillin; Z88.8 Allergy status to other drugs, medicaments and biological substances; Z20.3 Contact with and (suspected) exposure to rabies; W54.0XXA Bitten by dog, initial encounter
CPT/HCPCS: 90377; 90471; 90675; 96372; 99283

== ENCOUNTER 2024-01-20 18:13 | Inpatient (IN) | payer MEDICARE, MEDICAID ==
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
[2024-01-20] MEDS: hydrALAZINE HCL 20 MG/ML 1 ML VIAL IM STA (21:29)
[2024-01-20] MEDS ORDERED: MAG HYDROX/AL HYDROX/SIMETH 355 ML BOTTLE PO PRN (22:18)
[2024-01-20] MEDS ORDERED: MAGNESIUM HYDROXIDE 2,400 MG/30 ML CUP PO PRN (22:18)
[2024-01-20] MEDS: OLANZapine 5 MG TAB PO SCH (22:58)
[2024-01-20] MEDS: busPIRone HCl 10 MG TAB PO SCH (22:58)
[2024-01-20 23:04] LABS: Amphetamine Screen,Urine Not Detected (NotDetected); Barbiturate Screen,Urine Not Detected (NotDetected); Benzodiazepines Screen,Urine Not Detected (NotDetected); Cocaine Screen,Urine Not Detected (NotDetected); Methadone Screen, Urine Not Detected (NotDetected); Opiate Screen,Urine Not Detected (NotDetected); Oxycodone Screen, Urine Not Detected (NotDetected); Phencyclidine Screen,Urine Not Detected (NotDetected); Tricyclic Antidepressant,Urine Not Detected (NotDetected); Urn Cannabinoid Scrn Not Detected (NotDetected)
[2024-01-20] MEDS: clonazePAM 1 MG TAB PO PRN (23:44)
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
[2024-01-21] MEDS: hydrALAZINE HCL 25 MG TAB PO STA (04:31)
[2024-01-21] MEDS: PANTOPRAZOLE 40 MG TABLET PO SCH (08:41)
[2024-01-21] MEDS: FINASTERIDE 5 MG TAB PO SCH (08:41)
[2024-01-21] MEDS: atenoloL 25 MG TAB PO SCH (08:41)
[2024-01-21] MEDS: buPROPion XL 150 MG TAB.ER.24H PO SCH (08:41)
[2024-01-21] MEDS: VALSARTAN 160 MG TAB PO SCH (08:42)
[2024-01-21] MEDS: OLANZapine 5 MG TAB PO SCH (08:42)
[2024-01-21] MEDS: hydroCHLOROthiazide 12.5 MG CAP PO SCH (08:42)
[2024-01-21] MEDS: NICOTINE 21MG/24HR PATCH TRANSDERM SCH (10:56)
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
[2024-01-21] MEDS: SERTRALINE 50 MG TAB PO SCH (11:52)
[2024-01-21] MEDS: MULTIVITAMINS, THERA 1 EACH TAB PO SCH (11:52)
[2024-01-21] MEDS: PERPHENAZINE 4 MG TAB PO SCH (11:52)
[2024-01-21 12:57] LABS: Basophils # (A) 0.1 k/uL (0-0.2); Basophils % (A) 1 %; Eosinophils # (A) 0.3 k/uL (0-0.7); Eosinophils % (A) 5 %; HGB 14.5 gm/dL (13.0-17.5); Lymphocytes # (A) 1.9 k/uL (1.0-4.8); Lymphocytes % (A) 28 %; MCH 31.8 pg (25.0-35.0); MCHC 33.8 g/dL (31.0-37.0); MCV 94.1 fL (80.0-100.0); Mean Platelet Volume 7.4; Monocytes # (A) 0.3 k/uL (0-1.0); Monocytes % (A) 5 %; Neutrophils # (A) 4.1 k/uL (1.3-7.7); Neutrophils % (A) 60 %; Platelet Count 319 k/uL (150-450); RBC 4.57 m/uL (4.30-5.90); RDW 13.3 % (11.5-15.5); WBC 6.8 k/uL (3.8-10.6)
[2024-01-21 13:16] LABS: ALT 91 U/L (4-49); AST 69 U/L (17-59); African American GFR (CKD) >90 (>60 ml/min/1.73 sqM); Albumin 4.5 g/dL (3.5-5.0); Alkaline Phosphatase 55 U/L (38-126); Anion Gap 5 mmol/L; Blood Urea Nitrogen 17 mg/dL (9-20); Calcium 9.5 mg/dL (8.4-10.2); Carbon Dioxide 28 mmol/L (22-30); Chloride 107 mmol/L (98-107); Glucose 84 mg/dL (74-99); Non-African American GFR(CKD) 90 (>60 ml/min/1.73 sqM); Potassium 4.6 mmol/L (3.5-5.1); Sodium 140 mmol/L (137-145); Total Bilirubin 0.6 mg/dL (0.2-1.3); Total Protein 7.3 g/dL (6.3-8.2)
[2024-01-21] MEDS: clonazePAM 1 MG TAB PO PRN (17:43)
[2024-01-21] MEDS: hydrALAZINE HCL 25 MG TAB PO ONE (22:37)
--- NOTE | 2024-01-22 10:52 | P.PN ---
Progress Note - Text Progress Note Date: 01/22/24 Interval History: Patient was seen [wandering the hallways] and was directable and agreeable to speak with machine sign writer in the office. Today, he is preoccupied with his blood pressure. He did see medical yesterday, and they gave him a single dose of medication to help his elevated blood pressure. He states his depression is really bad, he napped, and stated he woke up and had the feelings of dread. He is still endorsing auditory hallucinations. He does states his anxiety is getting a little better. He is sleeping well at night. His appetite is normal for him. At this time patient is endorsing passive suicidal ideation, denies homicidal ideations, intent or plan. Patient denies any auditory, visual hallucinations and denies any paranoia or delusions. Patient denies any side effects from the medications and has been compliant with meds. MENTAL STATUS EXAM: General Appearance: Patient appears to be stated age is alert, directable, and attempts to cooperate. Patient appears to have adequate hygiene and grooming. Behavior: Patient is seated without any agitated behavior. Attempts to c ooperate. Speech: Patient's speech is fluent and nonpressured. hyperverbal. Mood/Affect: Patient reports their mood is "depressed", affect is congruent and constricted Suicidality/Homicidality: Patient denies having any homicidal ideation intent or plan. Endorses suicidal ideations, no intent or plan while on the unit Perceptions: Patient denies visual hallucinations and admits to auditory chavez llucinations negative in nature. Though content/process: There is no evidence of any delusional thought content and thought process is linear and goal-directed. Focused on his medications and symptoms. Memory and concentration: AOX3, grossly intact for the purposes of this session. Judgment and insight: fair IMPRESSIONS: Schizoaffective disorder, depressed type Generalized anxiety disorder History of traumatic brain injury Nicotine dependence PLAN: -Patient is admitted under voluntary status to MHU for stabilization of psychiatric symptoms and safety. -Medications : increase Zoloft 100mg daily for depression/anxiety, increase trilafon 8mg bid for psychosis, klonopin 1mg bid prn for anxiety, trazodone 50mg qhs for sleep, buspar 30mg po bid for anxiety -Ativan and Haldol PRN for agitation/aggression -Ordered EKG, awaiting lab work. -NRT - nicotine patch -SW on board for discharge planning. Encourage patient to participate in groups to work on coping skills.
[2024-01-22] MEDS: NICOTINE GUM (POLACRILEX) 2 MG GUM BUCCAL PRN ×2 (11:47→17:09)
[2024-01-22] MEDS: PERPHENAZINE 4 MG TAB PO SCH (20:47)
[2024-01-23] MEDS: SERTRALINE 100 MG TAB PO SCH (08:33)
[2024-01-23] MEDS: NICOTINE GUM (POLACRILEX) 2 MG GUM BUCCAL PRN (10:56)
--- NOTE | 2024-01-23 14:56 | P.PN ---
Progress Note - Text Interval history: Patient was seen and was directable and agreeable to speak with marketing copywriter. reports auditory hallucinations that is leading to depression. Also reports intermittent suicidal ideations, last suicidal ideation was earlier this morning. Reports that his anxiety has improved.. At this time patient denies any suicidal or homicidal ideations intent or plan. Denies any r visual hallucinations. Patient denies any side effects from the medications and has been compliant with meds. Mental status exam: General Appearance: [Patient appears to be stated age is alert, directable, and cooperative.] Behavior: [No agitated behavior. Patient is calm and directable] Speech: Patient's speech is fluent and nonpressured. Mood/Affect: Mood is improving mildly, affect is congruent and constricted. Suicidality/Homicidality: Patient denies having any suicidal or homicidal ideation intent or plan. Perceptions: reports AH, Patient denies visual hallucinations. Though content/process: [There is no evidence of any delusional thought content and thought process is linear and goal-directed.] Memory and concentration: AOX3, grossly intact for the purposes of this session Judgment and insight: improving mildly Assessment/Plan: Continue with current diagnosis. Patient continues to meet criteria for inpatient psychiatric admission for symptom stabilization and safety.[Patient will be maintained on current psychotropic medication regimen.] Monitor for medication compliance and for any psychotropic medication side effects. Will continue to monitor ongoing response to treatment. Encouraged participation in milieu.
[2024-01-23] MEDS: traZODone HCL 50 MG TAB PO PRN (21:56)
--- NOTE | 2024-01-24 22:48 | P.PN ---
Progress Note - Text Interval history: Patient was seen and was directable and agreeable to speak with film writer. No SI, HI, AVH. Patient denies any side effects from the medications and has been compliant with meds. Mental status exam: General Appearance: [Patient appears to be stated age is alert, directable, and cooperative.] Behavior: [No agitated behavior. Patient is calm and directable] Speech: Patient's speech is fluent and nonpressured. Mood/Affect: Mood is improving mildly, affect is congruent and constricted. Suicidality/Homicidality: Patient denies having any suicidal or homicidal ideation intent or plan. Perceptions: no AVH Though content/process: [There is no evidence of any delusional thought content and thought process is linear and goal-directed.] Memory and concentration: AOX3, grossly intact for the purposes of this session Judgment and insight: improving mildly Assessment/Plan: Continue with current diagnosis. Patient continues to meet criteria for inpatient psychiatric admission for symptom stabilization and safety.[Patient will be maintained on current psychotropic medication regimen.] Monitor for medication compliance and for any psychotropic medication side effects. Will continue to monitor ongoing response to treatment. Encouraged participation in milieu.
[2024-01-25] MEDS: ACETAMINOPHEN TAB 325 MG TAB PO PRN (06:02)
--- NOTE | 2024-01-25 11:18 | P.PN ---
Progress Note - Text Progress Note Date: 01/25/24 Interval History: Patient was seen [wandering the hallways] and was directable and agreeable to speak with story writer in the office. He states that he is hearing voices, very negative in nature. He states when he is experiences the voices, he feels suicidal. He is sleeping ok at night, he states that the trazodone "gives him energy" when he takes it. His appetite is normal for him. He is very focused on his medications and symptoms. Patient denies homicidal ideations, intent or plan. Patient endorses auditory hallucinations, denies visual hallucinations and denies any paranoia or delusions. Patient denies any side effects from the medications and has been compliant with meds. MENTAL STATUS EXAM: General Appearance: Patient appears to be stated age is alert, directable, and attempts to cooperate. Patient appears to have adequate hygiene and grooming. Behavior: Patient is seated without any agitated behavior. Attempts to cooperate. Speech: Patient's speech is fluent and nonpressured. hyperverbal. Mood/Affect: Patient reports their mood is "depressed", affect is congruent and constricted Suicidality/Homicidality: Patient denies having any homicidal ideation intent or plan. Endorses suicidal ideations, no intent or plan while on the unit Perceptions: Patient denies visual hallucinations and admits to auditory hallucinations negative in nature. Though content/process: There is no evidence of any delusional thought content and thought process is linear and goal-directed. Focused on his medications and symptoms. Memory and concentration: AOX3, grossly intact for the purposes of this session. Judgment and insight: fair IMPRESSIONS: Schizoaffective disorder, depressed type Generalized anxiety disorder History of traumatic brain injury Nicotine dependence PLAN: -Patient is admitted under voluntary status to [facility] for stabilization of psychiatric symptoms and safety. -Medications : Zoloft 100mg daily for depression/anxiety, d/c trilafon due to ineffectiveness, Add Prolixin 3mg bid for psychosis, klonopin 1mg bid prn for anxiety, d/c trazodone buspar 30mg po bid for anxiety, add Remeron 15mg qhs for sleep. -Ativan and Haldol PRN for agitation/aggression -EKG within normal limits. -NRT - nicotine patch -SW on board for discharge planning. Encourage patient to participate in groups to work on coping skills.
[2024-01-25] MEDS: MIRTAZAPINE 15 MG TAB PO SCH (20:56)
[2024-01-26] MEDS: NICOTINE 14MG/24HR PATCH TRANSDERM SCH (10:31)
--- NOTE | 2024-01-26 11:14 | P.PN ---
Progress Note - Text Progress Note Date: 01/26/24 Interval History: Patient was seen wandering the hallways and was directable and agreeable to salvador jenkins with screen writer in the office. He claims that today he is doing a bit better, claims that the voices have improved significantly since yesterday. He states that he was feeling a bit tired earlier yesterday however states that he was just trying to get used to the medications. States that he has improvement in his energy today. Claims that he did have fleeting thoughts of suicide however wants to remain on the same dose of Zoloft today. He is sleeping ok at night with the Remeron, he is happy with this medication. His appetite is normal for him. He is very focused on his medications and symptoms and also his blood pressure which is also improving. Patient denies homicidal ideations, intent or plan. Patient endorses auditory hallucinations are improving, denies visual hallucinations and denies any paranoia or delusions. Patient denies any side effects from the medications and has been compliant with meds. MENTAL STATUS EXAM: General Appearance: Patient appears to be stated age is alert, directable, and attempts to cooperate. Patient appears to have adequate hygiene and grooming. Behavior: Patient is seated without any agitated behavior. Attempts to cooperate. Improving mildly Speech: Patient's speech is fluent and nonpressured. hyperverbal. Mood/Affect: Patient reports their mood is "better today", affect is congruent and constricted, improving Suicidality/Homicidality: Patient denies having any homicidal ideation intent or plan. Endorses suicidal ideations, no intent or plan while on the unit improving Perceptions: Patient denies visual hallucinations and admits to auditory hallucinations negative in nature. Improving voices Though content/process: There is no evidence of any delusional thought content and thought process is linear and goal-directed. Focused on his medications and symptoms. Memory and concentration: AOX3, grossly intact for the purposes of this session. Judgment and insight: fair improving mildly IMPRESSIONS: Schizoaffective disorder, depressed type Generalized anxiety disorder History of traumatic brain injury Nicotine dependence PLAN: -Patient is admitted under voluntary status to [facility] for stabilization of psychiatric symptoms and safety. -Medications : Zoloft 100mg daily for depression/anxiety, increase Prolixin PO 3mg daily + 5 mg qhs for psychosis, klonopin 1mg bid prn for anxiety, buspar 30mg po bid for anxiety, Remeron 15mg qhs for sleep. -Ativan and Haldol PRN for agitation/aggression -NRT - nicotine patch -SW on board for discharge planning. Encourage patient to participate in groups to work on coping skills. possible discharge thursday vs early next week if patient is improving.
--- NOTE | 2024-01-27 11:21 | P.PN ---
Progress Note - Text Progress Note Date: 01/27/24 Interval History: Patient was seen wandering the hallways and was directable and agreeable to salvador jenkins with greeting card writer in the office. He claims that today he is ok today. He states that he is a bit tired today. He states that he is still hearing the voices, and sometimes they are better, sometimes they are worse and even scare him at times. He states he wakes up, he is feeling suicidal. His appetite is normal for him. He states he did not sleep very well last night, and woke up at 3am. He is going to groups. He is very focused on his medications and symptoms. Patient denies homicidal ideations, intent or plan. Patient endorses auditory hallucinations states they are sometimes improving, denies visual hallucinations and denies any paranoia or delusions. Patient denies any side effects from the medications and has been compliant with meds. MENTAL STATUS EXAM: General Appearance: Patient appears to be stated age is alert, directable, and attempts to cooperate. Patient appears to have adequate hygiene and grooming. Behavior: Patient is seated without any agitated behavior. Attempts to c ooperate. Improving mildly Speech: Patient's speech is fluent and nonpressured. hyperverbal. Mood/Affect: Patient reports their mood is "ok", affect is congruent and constricted, improving Suicidality/Homicidality: Patient denies having any homicidal ideation intent or plan. Endorses suicidal ideations, no intent or plan while on the unit improving Perceptions: Patient denies visual hallucinations and admits to auditory hallucinations negative in nature. Improving voices Though content/process: There is no evidence of any delusional thought content and thought process is linear and goal-directed. Focused on his medications and symptoms Memory and concentration: AOX3, grossly intact for the purposes of this session Judgment and insight: improving mildly IMPRESSIONS: Schizoaffective disorder, depressed type Generalized anxiety disorder History of traumatic brain injury Nicotine dependence PLAN: -Patient is admitted under voluntary status to [facility] for stabilization of psychiatric symptoms and safety. -Medications : change Zoloft 100mg QHS for depression/anxiety, change Prolixin PO 2mg daily + 7.5 mg qhs for psychosis, klonopin 1mg bid prn for anxiety, buspar 30mg po bid for anxiety, Remeron 15mg qhs for sleep. Add Cogentin 0.5 for QHS EPS symptoms/sleep -Ativan and Haldol PRN for agitation/aggression -NRT - nicotine patch -SW on board for discharge planning. Encourage patient to participate in groups to work on coping skills. possible discharge early next week if patient is improving.
[2024-01-27] MEDS: SERTRALINE 100 MG TAB PO SCH (20:06)
[2024-01-27] MEDS: BENZTROPINE MESYLATE 0.5 MG TAB PO SCH (22:49)
--- NOTE | 2024-01-28 11:36 | P.PN ---
Progress Note - Text Progress Note Date: 01/28/24 Interval History: Patient was seen wandering the hallways and was directable and agreeable to salvador jenkins with health technical writer in the office. He claims that today he is doing pretty good today. He states that he did not take his Remeron last night, just to see how well he could sleep without it. He states he slept pretty good, and that he has been having vivid dreams, however, he will take it tonight. He is still endorsing AH, but this are improving significantly. His appetite is normal for him. He is going to groups. He remains very focused on his medications and symptoms. Patient denies homicidal ideations, intent or plan. Patient is still endorsing SI, but claims that the feeling are getting better every day. Patient endorses auditory hallucinations states they are improving, denies visual hallucinations and denies any paranoia or delusions. Patient denies any side effects from the medications and has been compliant with meds. MENTAL STATUS EXAM: General Appearance: Patient appears to be stated age is alert, directable, and attempts to cooperate. Patient appears to have adequate hygiene and grooming. Behavior: Patient is seated without any agitated behavior. Attempts to cooperate. Improving mildly Speech: Patient's speech is fluent and nonpressured. hyperverbal. Mood/Affect: Patient reports their mood is "pretty good", affect is congruent and constricted, improving Suicidality/Homicidality: Patient denies having any homicidal ideation intent or plan. Endorses suicidal ideations, no intent or plan which are improving Perceptions: Patient denies visual hallucinations and admits to auditory hallucinations negative in nature. Improving voices Though content/process: There is no evidence of any delusional thought content and thought process is linear and goal-directed. Focused on his medications and symptoms Memory and concentration: AOX3, grossly intact for the purposes of this session Judgment and insight: improving mildly IMPRESSIONS: Schizoaffective disorder, depressed type Generalized anxiety disorder History of traumatic brain injury Nicotine dependence PLAN: -Patient is admitted under voluntary status to [facility] for stabilization of psychiatric symptoms and safety. -Medications : Zoloft 100mg QHS for depression/anxiety, increase Prolixin PO 2mg daily + 8 mg qhs for psychosis, klonopin 1mg bid prn for anxiety, buspar 30mg po bid for anxiety, Remeron 15mg qhs for sleep. Cogentin 0.5 for QHS EPS symptoms/sl eep, may consider adding a mood stabilizer -Ativan and Haldol PRN for agitation/aggression -NRT - nicotine patch -SW on board for discharge planning. Encourage patient to participate in groups to work on coping skills. possible discharge early next week if patient is improving.
--- NOTE | 2024-01-29 11:06 | P.PN ---
Progress Note - Text Progress Note Date: 01/29/24 Interval History: Patient was seen wandering the hallways and was directable and agreeable to salvador jenkins with conventional underwriter in the office. He claims that today he is doing good today. He states that he slept better last night. He continues to endorse AH, but this are improving significantly. His appetite is normal for him. He is going to groups. He remains very focused on his medication dosages and symptoms. He does endorse some anxiety today. Patient denies homicidal ideations, intent or plan. Patient is still endorsing SI, but claims that the feelings are improving. Patient endorses auditory hallucinations states they are improving, denies visual hallucinations and denies any paranoia or delusions. Patient denies any side effects from the medications and has been compliant with meds. MENTAL STATUS EXAM: General Appearance: Patient appears to be stated age is alert, directable, and attempts to cooperate. Patient appears to have adequate hygiene and grooming. Behavior: Patient is seated without any agitated behavior. Attempts to cooperate. Improving mildly Speech: Patient's speech is fluent and nonpressured. hyperverbal. Mood/Affect: Patient reports their mood is "good", affect is congruent and constricted, improving Suicidality/Homicidality: Patient denies having any homicidal ideation intent or plan. Endorses suicidal ideations, improving Perceptions: Patient denies visual hallucinations and admits to auditory hallucinations negative in nature. Improving voices Though content/process: There is no evidence of any delusional thought content and thought process is linear and goal-directed. Focused on his medications and symptoms Memory and concentration: AOX3, grossly intact for the purposes of this session Judgment and insight: improving mildly IMPRESSIONS: Schizoaffective disorder, depressed type Generalized anxiety disorder History of traumatic brain injury Nicotine dependence PLAN: -Patient is admitted under voluntary status to [facility] for stabilization of psychiatric symptoms and safety. -Medications : increase Zoloft 150 mg QHS for depression/anxiety, increase P rolixin PO 2mg daily + 10mg qhs for psychosis, klonopin 1mg bid prn for anxiety, buspar 30mg po bid for anxiety, Remeron 15mg qhs for sleep. Cogentin 0.5 for QHS EPS symptoms/sleep, may consider adding a mood stabilizer -Ativan and Haldol PRN for agitation/aggression -NRT - nicotine patch -SW on board for discharge planning. Encourage patient to participate in groups to work on coping skills. possible discharge thursday-thursday if patient is improving.
[2024-01-29] MEDS: SERTRALINE 50 MG TAB PO SCH (20:37)
--- NOTE | 2024-01-30 10:38 | P.PN ---
Progress Note - Text Progress Note Date: 01/30/24 Interval history: Patient was seen wandering the hallways and was directable and agreeable to s peak with senior writer. Patient claims that he is doing a bit better today. Continues to be fairly focused on his medications and the doses. Claims that he continues to wake up around 12:00 at night. We spoke about different options for nighttime medications, he was agreeable to try an increased dose of Remeron tonight. States that he is trying to go to groups and get along with other patients on the unit. Claims that he feels more optimistic since his symptoms have been improving. Claims that the voices have also been decreasing in intensity significantly. At this time patient denies any suicidal or homicidal ideations intent or plan. Denies any visual hallucinations. Patient denies any side effects from the medications and has been compliant with meds. Mental status exam: General Appearance: Patient appears to be stated age is alert, directable, and cooperative. Behavior: No agitated behavior. Patient is calm and directable rambles at times Speech: Patient's speech is fluent and nonpressured. Mood/Affect: Mood is improving mildly, affect is congruent and constricted. Suicidality/Homicidality: Patient denies having any suicidal or homicidal ideation intent or plan. Perceptions: Patient denies any auditory or visual hallucinations. Though content/process: There is no evidence of any delusional thought content and thought process is linear and goal-directed. Focused on medications and doses Memory and concentration: AOX3, grossly intact for the purposes of this session Judgment and insight: improving mildly Assessment/Plan: Continue with current diagnosis. Patient continues to meet criteria for inpatient psychiatric admission for symptom stabilization and safety. Patient will be maintained on current psychotropic medication regimen, with the exception of increasing Remeron to 30 mg nightly. Monitor for medication compliance and for any psychotropic medication side effects. Will continue to monitor ongoing response to treatment. Encouraged participation in milieu. For for discharge Thursday
[2024-01-30 13:09] VITALS: BMI 28.7
[2024-01-30] MEDS: MIRTAZAPINE 15 MG TAB PO SCH (21:56)
[2024-01-31 07:15] VITALS: RESP 16; TEMP 97.7
--- NOTE | 2024-01-31 12:11 | P.PN ---
Progress Note - Text Progress Note Date: 01/31/24 Interval history: Patient was seen wandering the hallways and was directable and agreeable to s peak with consumer loan underwriter. Patient states that he is doing better today overall. Continues to be fairly focused on his medications and the doses. Claims that he woke up around 3 AM last night, states that he took anxiety medication at that time went back to sleep, states that the Remeron has been helping significantly with sleep. Claims that he feels more optimistic since his symptoms have been improving. Claims that the voices have also been decreasing in intensity significantly, is not hearing them any longer today. At this time patient denies any suicidal or homicidal ideations intent or plan. Denies any visual hallucinations. Patient denies any side effects from the medications and has been compliant with meds. Mental status exam: General Appearance: Patient appears to be stated age is alert, directable, and cooperative. Behavior: No agitated behavior. Patient is calm and directable rambles at times Speech: Patient's speech is fluent and nonpressured. Mood/Affect: Mood is improving mildly, affect is congruent and improving Suicidality/Homicidality: Patient denies having any suicidal or homicidal ideation intent or plan. Perceptions: Patient denies any auditory or visual hallucinations. Though content/process: There is no evidence of any delusional thought content and thought process is linear and goal-directed. Focused on medications and doses, improving Memory and concentration: AOX3, grossly intact for the purposes of this session Judgment and insight: improving mildly Assessment/Plan: Continue with current diagnosis. Patient continues to meet criteria for inpatient psychiatric admission for symptom stabilization and safety. Patient will be maintained on current psychotropic medication regimen. Monitor for medication compliance and for any psychotropic medication side effects. Will continue to monitor ongoing response to treatment. Encouraged participation in milieu. likely discharge Thursday
[2024-02-01 06:51] VITALS: BP 122/80; PULSE 63
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
== END 2024-02-01 14:45 | disposition home or self-care (01) | DRG 885 ==
LOC: EC 18:13 → 3MHU 22:16
PROVIDERS: ADMIT Psychiatry & Neurology Psychiatry; ATTEND Psychiatry & Neurology Psychiatry
DX: F25.1 Schizoaffective disorder, depressive type (principal); R45.851 Suicidal ideations; Z59.01 Sheltered homelessness; F41.1 Generalized anxiety disorder; I10 Essential (primary) hypertension; N40.0 Benign prostatic hyperplasia without lower urinary tract symptoms; F31.9 Bipolar disorder, unspecified; F17.200 Nicotine dependence, unspecified, uncomplicated; Z88.6 Allergy status to analgesic agent; Z88.0 Allergy status to penicillin; Z88.8 Allergy status to other drugs, medicaments and biological substances; Z79.899 Other long term (current) drug therapy; Z87.820 Personal history of traumatic brain injury; Z82.49 Family history of ischemic heart disease and other diseases of the circulatory system
CPT/HCPCS: 80053; 80306; 82075; 83036; 84443; 85025; 87636; 93005; 96372; 99285

== ENCOUNTER 2024-02-02 03:21 | Emergency (ER) | payer MEDICARE, MEDICAID ==
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
[2024-02-02 09:56] VITALS: BP 168/101; PULSE 117; RESP 18; TEMP 98.1
== END 2024-02-02 10:26 | disposition home or self-care (01) ==
LOC: EC 03:21
CPT/HCPCS: 82075; 99284